=== PATIENT | female | born 1950 | race Caucasian/White ===

== ENCOUNTER 2017-02-01 10:27 | Inpatient (IN) | payer MEDICARE ==
[~2017-02-01] VITALS: Ht 160 cm; Wt 72.1 kg
[~2017-02-01 10:27] MED LIST: ABILIFY5 M1 PO; ACETAMINOPHEN/O1 TA3 PO; ATORVASTATIN CA40 M1 PO; CARISOPRODOL350 MG PO; CEL100 PO; COZ25 PO; EFFEXOR-XR150 MG PO; LAC PO; LAMOTRIGINE150 M1 PO; MAC100 PO; PANTOPRAZOLE SO40 M1 PO; TRAZODONE50 M1 PO; VENLAFAXINE HY150 MG PO; ZAN4 PO
[2017-02-01 11:23] LABS: BASOPHIL % 0.2 % (0-2); PLATELET COUNT 358 x10^3mcL (130-400); RED CELL DISTRIBUTION WIDTH 13.3 % (11.5-14.5)
[2017-02-01 11:24] LABS: CALCIUM 8.9 mg/dL (8.5-10.1); CARBON DIOXIDE 29.9 mmol/L (21-32); CHLORIDE SERUM 102 mmol/L (98-107); CREATININE SERUM 0.8 mg/dL (0.6-1.0); GFR1 > 60 mL/min; GLUCOSE SERUM 116 mg/dL (74-106); POTASSIUM SERUM 3.6 mmol/L (3.5-5.1); SODIUM SERUM 141 mmol/L (136-145)
[2017-02-01 11:28] LABS: ALKALINE PHOSPHATASE 85 U/L (46-116); ALT/SGPT 31 U/L (14-59); AMYLASE 37 U/L (25-115); AST/SGOT 27 U/L (15-37); BILIRUBIN TOTAL 0.4 mg/dL (0.20-1.00); LIPASE 158 IU/L (73-393); TOTAL PROTEIN, SERUM 7.1 g/dL (6.4-8.2)
[2017-02-01 11:30] LABS: ALBUMIN 3.1 g/dL (3.4-5.0)
[2017-02-01 11:49] LABS: microscopic required? NO
[2017-02-01 12:49] LABS: UA SPECIFIC GRAVITY 1.015 (1.005-1.035)
[2017-02-01 12:50] LABS: urine erythrocyte NEGATIVE (NEGATIVE)
[2017-02-01 15:30] VITALS: BP 157/94
[2017-02-01 16:43] LABS: PHOSPHOROUS 2.8 mg/dL (2.5-4.9)
[2017-02-01 16:53] LABS: T3 TOTAL 1.11 ng/mL
[2017-02-01 16:55] LABS: FREE T4 1.18 ng/dL (0.76-1.46); FREE THYROXINE INDEX 2.4 ug/dL (1.4-4.5); T4(THYROXINE) 6.7 ug/dL (4.7-13.3)
[2017-02-01 18:55] VITALS: BP 177/81
[2017-02-01 19:50] VITALS: BP 159/75
[2017-02-01 21:30] VITALS: BP 159/75
[2017-02-02 05:51] VITALS: BP 186/84
[2017-02-02 08:50] VITALS: BP 110/66
[2017-02-02 13:38] VITALS: BP 166/80
[2017-02-02 17:20] VITALS: BP 139/82
[2017-02-02 19:35] VITALS: BP 141/63
[2017-02-03 05:58] VITALS: BP 145/74
[2017-02-03 06:30] LABS: CALCIUM 8.4 mg/dL (8.5-10.1); CARBON DIOXIDE 29.3 mmol/L (21-32); CHLORIDE SERUM 108 mmol/L (98-107); CREATININE SERUM 0.8 mg/dL (0.6-1.0); GFR1 > 60 mL/min; GLUCOSE SERUM 91 mg/dL (74-106); POTASSIUM SERUM 3.5 mmol/L (3.5-5.1); SODIUM SERUM 146 mmol/L (136-145)
[2017-02-03 07:13] LABS: BASOPHIL % 0.5 % (0-2); PLATELET COUNT 379 x10^3mcL (130-400); RED CELL DISTRIBUTION WIDTH 13.4 % (11.5-14.5)
[2017-02-03 11:17] VITALS: BP 152/71
[2017-02-03 13:19] VITALS: BP 138/68
[2017-02-03 18:34] VITALS: BP 145/88
[2017-02-03 19:50] VITALS: BP 137/65
[2017-02-03 21:27] VITALS: BP 155/71
[2017-02-04 05:51] VITALS: BP 138/65
[2017-02-04 05:55] VITALS: BP 152/93
[2017-02-04 05:59] LABS: BASOPHIL % 0.6 % (0-2); PLATELET COUNT 336 x10^3mcL (130-400); RED CELL DISTRIBUTION WIDTH 13.6 % (11.5-14.5)
[2017-02-04 06:22] LABS: CALCIUM 8.5 mg/dL (8.5-10.1); CARBON DIOXIDE 28.2 mmol/L (21-32); CHLORIDE SERUM 108 mmol/L (98-107); CREATININE SERUM 0.8 mg/dL (0.6-1.0); GFR1 > 60 mL/min; GLUCOSE SERUM 105 mg/dL (74-106); MAGNESIUM 1.7 mg/dL (1.8-2.4); PHOSPHOROUS 4.3 mg/dL (2.5-4.9); POTASSIUM SERUM 3.8 mmol/L (3.5-5.1); SODIUM SERUM 144 mmol/L (136-145)
[2017-02-04 10:32] VITALS: BP 146/67
[2017-02-04] MEDS ORDERED: ROBAXIN500 MG PO (11:44)
[2017-02-04] MEDS ORDERED: GABAPENTIN100 M2 PO (11:44)
[2017-02-04 13:33] VITALS: BP 125/62
[2017-02-04] MEDS ORDERED: METOPROLOL TART25 M1 PO (15:47)
[2017-02-04 17:59] VITALS: BP 139/78
[2017-02-04 18:05] VITALS: BP 139/78
== END 2017-02-04 19:15 | disposition home health service (06) | DRG 391 ==
LOC: ED 10:27 → DU 13:07
PROVIDERS: Emergency Medicine; Family Medicine; ADMIT Family Medicine
DX: K59.03 Drug induced constipation (principal); I50.43 Acute on chronic combined systolic (congestive) and diastolic (congestive) heart failure; E44.0 Moderate protein-calorie malnutrition; M48.57XA Collapsed vertebra, not elsewhere classified, lumbosacral region, initial encounter for fracture; I42.9 Cardiomyopathy, unspecified; M51.36 Other intervertebral disc degeneration, lumbar region; F32.9 Major depressive disorder, single episode, unspecified; K21.9 Gastro-esophageal reflux disease without esophagitis; I10 Essential (primary) hypertension; G89.29 Other chronic pain; E83.42 Hypomagnesemia; E78.5 Hyperlipidemia, unspecified; M85.80 Other specified disorders of bone density and structure, unspecified site; Z98.1 Arthrodesis status; Z68.28 Body mass index [BMI] 28.0-28.9, adult; T40.2X5A Adverse effect of other opioids, initial encounter; Y92.018 Other place in single-family (private) house as the place of occurrence of the external cause
CPT/HCPCS: 83880; 84439; 97530-GP; J1170; J1885; J2405; J3010; J3475; J7030

== ENCOUNTER 2019-02-16 12:41 | Observation (INO) | payer OTHER ==
[~2019-02-16] VITALS: Ht 160 cm; Wt 81.6 kg
[~2019-02-16 12:41] MED LIST changes: +GABAPENTIN100 M2 PO; +METOPROLOL TART25 M1 PO; +ROBAXIN500 MG PO
[2019-02-16 13:11] VITALS: Ht 160 cm; Wt 81.6 kg
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
[2019-02-16 13:54] LABS: BASOPHIL % 0.8 % (0-2); PLATELET COUNT 294 x10^3mcL (130-400)
--- NOTE | 2019-02-16 14:34 | NUR ---
PT ARRIVED FROM MD OFFICE W/ PAPERWORK FROM ANOTHER PT. I TRIED TO CALL THEM TO NOTIFY THEM OF THIS & TO OBTAIN CORRECT PAPERWORK. NO ONE ANSWERED, I LEFT A MESSAGE. I GAVE THE INCORRECT PACKET OF PAPERWORK TO [employer]ATE MANAGER. SHE WAS ABLE TO GET A HOLD OF THEM & NOTIFY THEM OF THE ERROR & HAD THEM FAX OVER THE CORRECT PT PACKET. PACKET GIVEN TO VANIA KINNEY RN WHO PLACED IT ON THE CHART.
--- NOTE | 2019-02-16 14:43 | NUR ---
PT LAYING IN ED GURNEY IN POSITION OF COMFORT, A/O X4, CALM, COOPERATIVE, RESPS EVEN AND UNLABORED, SKIN WARM/DRY TO TOUCH, NO S/S OF DISTRESS NOTED. COMFORT MEASURES IN PLACE, CALL LIGHT WITHIN REACH.
[2019-02-16 14:45] LABS: CALCIUM 9.2 mg/dL (8.5-10.1); CARBON DIOXIDE 31.4 mmol/L (21-32); CHLORIDE SERUM 103 mmol/L (98-107); CREATININE SERUM 0.9 mg/dL (0.6-1.0); GFR1 > 60 mL/min; GLUCOSE SERUM 102 mg/dL (74-106); POTASSIUM SERUM 3.5 mmol/L (3.5-5.1); SODIUM SERUM 142 mmol/L (136-145)
[2019-02-16 15:07] LABS: ALBUMIN 3.5 g/dL (3.4-5.0); ALKALINE PHOSPHATASE 92 U/L (46-116); ALT/SGPT 25 U/L (14-59); AST/SGOT 23 U/L (15-37); BILIRUBIN TOTAL 0.5 mg/dL (0.20-1.00); T4(THYROXINE) 5.9 ug/dL (4.7-13.3); TOTAL PROTEIN, SERUM 7.5 g/dL (6.4-8.2)
--- NOTE | 2019-02-16 15:20 | NUR ---
ASSISTED PT TO BATHROOM, PT AMBULATORY WITH CANE, ABLE TO PROVIDE URINE SAMPLE, PT BACK IN ED GURNEY IN POSITION OF COMFORT, NO S/S OF DISTRESS NOTED.
[2019-02-16 15:44] LABS: AMPHETAMINE QUAL UR NONE DETECTED (See below)
--- NOTE | 2019-02-16 16:01 | NUR ---
DR. ALTMAN AT BEDSIDE DISCUSSING PLAN OF CARE WITH PT.
--- NOTE | 2019-02-16 16:49 | NUR ---
PT RESTING IN ED GURNEY IN POSITION OF COMFORT, REPORTS PAIN DECREASED TO 5/10 ON PAIN SCALE AND IS MORE COMFORTABLE, RESPS EVEN AND UNLABORED, NO S/S OF DISTRESS NOTED.
--- NOTE | 2019-02-16 17:30 | NUR ---
PT PROVIDED WITH DINNER TRAY, PT SITTING UP IN ED GURNEY EATING, NO S/S OF DISTRESS NOTED.
--- NOTE | 2019-02-16 18:22 | NUR ---
PORTABLE X-RAY IN PROGRESS AT BEDSIDE.
[2019-02-16 18:55] LABS: UA SPECIFIC GRAVITY 1.025 (1.005-1.035); microscopic required? YES; urine erythrocyte NEGATIVE (NEGATIVE)
--- NOTE | 2019-02-16 19:10 | NUR ---
REPORT RECIEVED FROM NILAM HANSEN. PT A&O X4, LAYING IN POSITION OF COMFORT. BED IN LOW AND LOCKED POSITION, 2 BED RAILS UP, CALL LIGHT W/IN REACH. PT C/O 04/08 PAIN IN BACK, STS THAT IT IS "MUCH" BETTER THAN WHEN SHE CAME IN, PT IS OK W/ LEVEL OF PAIN. PT NO LONGER EXPRESSES THOUGHTS OF HARM TO SELF. CURTAINS OPEN, PT IN DIRECT LINE OF SIGHT OF RN STATION. RESPS E/U, NAD NOTED AT THIS TIME.
--- NOTE | 2019-02-16 19:19 | NUR ---
REPORT GIVEN TO JONO HANSEN.
--- NOTE | 2019-02-16 20:15 | NUR ---
PT AWAKE AND ALERT, LAYING IN POSITION OF COMFORT. 2 BED RAILS UP, BED IN LOW AND LOCKED POSITION. CURTAINS OPEN, PT IN DIRECT LINE OF SIGHT OF RN STATION. EYES ON PT. PT CALM AND COOPERATIVE.
--- NOTE | 2019-02-16 20:37 | NUR ---
REPORT GIVEN TO SILVA HANSEN
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
--- NOTE | 2019-02-16 22:00 | NUR ---
PT STATED PAIN WAS AT AN ACCEPTABLE LEVEL AT THIS TIME, PT HAS NO ACUTE SIGNS OF DISTRESS, PT RELAXING IN BED SAFETY PRECAUTIONS IN PLACE, WILL CONTINUE TO MONITOR
[2019-02-16 22:05] VITALS: BP 144/75
--- NOTE | 2019-02-16 23:35 | NUR ---
PT REQUESTING PAIN MEDICATION DUE TO SLOWLY INCREASING PAIN, ADMINISTERED, TYLENOL PRN (SEE MAR)
--- NOTE | 2019-02-17 00:22 | NUR ---
PT REQUESTING PAIN MEDICATION FOR PAIN AT 04/08, ADMINISTERED NORCO PRN PER ORDER (SEE MAR) WILL CONTINUE TO MONITOR
--- NOTE | 2019-02-17 03:45 | NUR ---
PT REQUESTING MILK, NO SIGNS OF ACUTE DISTRESS, PT REPORTS PAIN IS AT A TOLERABLE LEVEL, SAFETY PRECAUTIONS IN PLACE WILL CONTINUE TO MONITOR
--- NOTE | 2019-02-17 05:14 | NUR ---
PT RESTED THROUGH THE NIGHT, PTS PAIN WAS CONTROLED WITH PRN NORCO PER ORDER (SEE MAR) THE PATIENT STATED THE PAIN WAS MAINTAINED AT AN ACCEPTABLE LEVEL THROUGH THE NIGHT, PT AMBULATED ONCE TO THE BATHROOM AND HAD ONE VOID, SAFETY PRECAUTIONS WERE MAINTAINED, WILL CONTINUE TO MONITOR AND ENDORDE CARE TO ONCOMING RN
[2019-02-17 06:51] LABS: BASOPHIL % 0.3 % (0-2); PLATELET COUNT 271 x10^3mcL (130-400); RED CELL DISTRIBUTION WIDTH 14.3 % (11.5-14.5)
[2019-02-17 06:54] LABS: CALCIUM 9.3 mg/dL (8.5-10.1); CARBON DIOXIDE 26.1 mmol/L (21-32); CHLORIDE SERUM 104 mmol/L (98-107); CREATININE SERUM 0.9 mg/dL (0.6-1.0); GFR1 > 60 mL/min; GLUCOSE SERUM 105 mg/dL (74-106); POTASSIUM SERUM 3.9 mmol/L (3.5-5.1); SODIUM SERUM 129 mmol/L (136-145)
--- NOTE | 2019-02-17 07:20 | NUR ---
RECEIVED PT FROM IMMIGRATION OFFICER. PT AWAKE, ALERT. A/OX4. PT ON ROOM AIR WITH NO RESP DISTRESS NOTED. LUNGS CTA. IV ACCESS RH C/D/I INFUSING NS AT 80ML/HR. PT REPORTS PAIN 5/10 TO SPINE. WILL MEDICATE PRN. PT DENIES SUICIDAL THOUGHTS/PLAN AT THIS TIME. PT STATES " LONG I CAN KEEP THE PAIN UNDER CONTROL". PT REPORTS PAIN INTERFERES WITH ACTIVITIES OF DAILY LIVING AND AT ONE POINT "COULDNT TAKE IT". PT REPORTS PAIN IS TOLERABLE AT THIS TIME. PERIPHERAL PULSES PALPABLE, NO EDEMA NOTED. NO ISSUES IDENTIFIED WITH ELIMINATION AT THIS TIME. PT HAS GENERALIZED WEAKNESS. SAFETY MEASURES IN PLACE, BED LOW AND LOCKED. CALL LIGHT WITHIN REACH.
[2019-02-17 09:28] VITALS: BP 172/87
--- NOTE | 2019-02-17 09:45 | NUR ---
PT COMPLAINING OF PAIN TO SPINE 05/09. NORCO 10 ADMINISTERED ORDERED PRN. (SEE EMAR). PT REFUSES ROBAXIN AT THIS TIME. PT STATES SHE WANTS NORCO FIRST. WILL CONTINUE TO MONITOR.
--- NOTE | 2019-02-17 10:45 | NUR ---
PT RESTING COMFORTABLY AT THIS TIME. MED EFFECTIVE. SITTER AT BEDSIDE. SAFETY MAINTAINED.
[2019-02-17 12:19] VITALS: BP 147/76
--- NOTE | 2019-02-17 12:20 | NUR ---
DUE MEDS ADMINISTERED. PT TOLERATED WELL (SEE EMAR). NO ACUTE DISTRESS OR DISCOMFORT NOTED AT THIS TIME.
--- NOTE | 2019-02-17 14:00 | NUR ---
ALL NEEDS MET AT THIS TIME. SITTER AT BEDSIDE.
--- NOTE | 2019-02-17 17:00 | NUR ---
PT COMPLAINING OF PAIN TO SPINE. PT REPORTS EARLIER ROBAXIN HELPED RELIEVED PAIN. MED DUE AT THIS TIME. PT WANTS TO SEE IF MED EFFECTIVE BEFORE TAKING NORCO. WILL CONTINUE TO MONITOR.
--- NOTE | 2019-02-17 19:01 | NUR ---
PT STABLE AT THIS TIME. PT SLEEPING AT THIS TIME WITH NO ACUTE DISTRESS OR DISCOMFORT NOTED. ALL NEEDS TENDED TO THROUGHOUT SHIFT. SITTER AT BEDSIDE. WILL CONTINUE TO MONITOR AND ENDORSE CARE TO HOME HEALTH RN. SAFETY MAINTAINED.
--- NOTE | 2019-02-17 19:40 | NUR ---
RECEIVED REPORT FROM DAY SHIFT RN. PT RESTING IN BED. AA&O X4. NO SOB ON ROOM AIR. NO C/O PAIN AT THIS TIME. NO DISTRESS NOTED. IV TO RIGHT HAND, INTACT. DENIES HAVING THOUGHTS OF HARMING SELF OR OTHERS. SAFETY MEASURES IN PLACE. INSTRUCTED PT TO USE THE CALL LIGHT FOR ASSISTANCE. CALL LIGHT WITHIN REACH. SITTER AT BEDSIDE.
[2019-02-17 20:58] VITALS: BP 150/77
--- NOTE | 2019-02-18 01:00 | NUR ---
PT RESTING WITH EYES CLOSED. NO SOB ON ROOM AIR. NO FACIAL GRIMACING. NO DISTRESS NOTED. SAFETY MEASURES IN PLACE. CALL LIGHT WITHIN REACH. WILL CONTINUE TO MONITOR.
--- NOTE | 2019-02-18 05:32 | NUR ---
PT SLEPT IN LONG INTERVALS THROUGHOUT SHIFT. NO SOB ON ROOM AIR. BREATHING EVEN AND UNLABORED. NO DISTRESS NOTED. NO ACUTE/SIGNIFICANT CHANGES TO REPORT. SAFETY MEASURES MAINTAINED. ALL NEEDS ATTENDED TO. CALL LIGHT WITHIN REACH. WILL ENDORSE CONTINUITY OF CARE TO ONCOMING RN.
[2019-02-18 05:53] VITALS: BP 183/82
--- NOTE | 2019-02-18 06:09 | NUR ---
PT C/O SHARP BACK PAIN 06/09. NORCO GIVEN.
--- NOTE | 2019-02-18 07:10 | NUR ---
RECEIVED PT FROM SAS SQL DEVELOPER RN. Cory/MAI. MED SURG. DENIES CHEST PAIN/PRESSURE. RESPIRATIONS EQUAL AND UNLABORED ON RA. DENIES SOB. PT STATES BACK PAIN IS TOLERABLE AT THIS TIME, SINCE RECEIVING PAIN MEDICATION THIS MORNING. IV TO LW PATENT AND INFUSING. NO REDNESS OR SWELLING NOTED. PT DENIES ANY THOUGHTS OF HARMING HERSELF OR OTHER. PT STATES SHE FEELS BETTER SINCE SHES HAD PEOPLE TO TALK TO. 5150 HOLD. WILL CONTINUE TO MONITOR. CALL LIGHT IN REACH. BED IN LOWEST POSITION.
[2019-02-18 09:00] VITALS: BP 157/78
--- NOTE | 2019-02-18 09:40 | NUR ---
PT SITTING UP IN BED. NO ACUTE RESP DISTRESS NOTED ON RA. PT DENIES SOB AT THIS TIME. GIVEN PO MEDS TOLERATED WELL. PT REFUSED COLACE, PT STATES SHE HAS BEEN HAVING SOFT STOOLS AND DOES NOT WANT TO GET DIARRHEA. IV FLUIDS DISCONTINUED PER ORDER. PT DENIES THOUGHTS OF HARMING HERSELF OR OTHERS. PT STATES BACK PAIN IS TOLERABLE AT THIS TIME. WILL CONTINUE TO MONITOR. CALL LIGHT IN REACH. BED IN LOWEST POSITION.
--- NOTE | 2019-02-18 12:48 | NUR ---
PHYSICAL THERAPY NOTE MISTAKEN ENTRY, DISREGARD THE ENTRY FOR CLARIFICATION ORDER FOR THE DATE 02/18/19.
--- NOTE | 2019-02-18 13:46 | NUR ---
PT SITTING UP IN BED RESTING. NO ACUTE RESP DISTRESS NOTED ON RA. PT STATES PAIN IS STARTING TO INCREASE BUT HAS BEEN MANAGABLE. GIVEN PO MEDS. TOLERATED WELL. PT STATES SHE WILL CALL IF PAIN WORSENS. PT DENIES THOUGHTS OF HARMING HERSELF OR OTHERS. WILL CONTINUE TO MONITOR. CALL LIGHT IN REACH. BED IN LOWEST POSITION.
--- NOTE | 2019-02-18 13:58 | NUR ---
Initial Nutrition Assessment- 212/A DOMINIC KELLOGG IA HR Dx: intractable back pain, suicidal ideation PMHx: chronic back pain PSHx: back surgery Labs: NA 129L, WBC 11.7H Meds: Colace, Lipitor, Zofran, heparin Diet: Cardiac PO Intake: 100% (02/17), (02/18) breakfast 60% Ht: 160.02cm (63") Wt: 81.6 kg (179#) BMI: 31.9 kg/m2 (obesity) IBW: 115# (52 kg) %IBW: 155 UBW: Pt was unaware Age: 68/F Food Allergies: NKFA Skin: intact Joaquín: 20 Edema: none GI: last BM:02/17 Trigger: poor PO x 3d (eats only one meal/day) Per H&P, pt is a 68 F PMH chronic back pain secondary to osteoarthritis s/p 2 back surgeries, on [place] for pain control from pain management physician, who was brought in by EMS, on a 5150 hold, for evaluation of suicidal ideation. The patient states that she told her PCP that she wanted to end her life secondary to her progressively worsening pain. Patient reports she was just feeling frustrated of living alone in pain without improvement despite ongoing medical treatment. RDN visit (02/18): pt said that her appetite is fair and she has some nausea but no V/D/C at this time. Pt said that she used to eat only one meal/day as she cannot cook her meals standing by the stove for long time d/t her back pain. Pt was advised to do bulk cooking for 3-4 meals simultaneously or look for 5-10 minute quick meal recipes. Pt said that she likes to read different recipes in books/magazines. Diet education for "normal nutrition" and healthy eating was provided. Problem with: N: little V/D/C: no Problems with: Chewing/Swallowing: no Current appetite: fair Recent wt change: weight gain, unaware about exact number of lbs. Vitamin/Supplement use: Vitamin D, B12, MVI Special diet at home: Regular Physical activity: unable to do PA d/t pain Education: Diet education was provided using [facility] handout on "General healthful nutrition therapy". Cooking and healthy eating tips were discussed. Estimated Nutritional Needs Based on actual body weight 81.6 kg Energy: 6580-8291 kcal/d (20-25 kcal/kg-maintenance) Protein: 65-81.6 g/d (0.8-1.0 g/kg)-maintenance and preservation of lean body mass Fluid: 2438-0813 ml/d (1 ml/kcal-fluid balance) or per doctor Nutrition Diagnosis 1. Impaired ability to prepare foods/meals related to chronic pain as evidenced by pt reporting consumption of only one meal/day. Intervention 1. Recommend continuing cardiac diet at this time. 2.Diet education provided. Monitor/Evaluate Goal: PO intake at least 75% of estimated needs Monitor: PO intake, Labs, GI function F/U in 7 days as low risk 02/25
--- NOTE | 2019-02-18 13:59 | NUR ---
1. Recommend continuing cardiac diet at this time. 2.Diet education provided.
[2019-02-18 16:10] VITALS: BP 151/81
[2019-02-18 17:10] VITALS: BP 151/81
--- NOTE | 2019-02-18 17:44 | NUR ---
(PSYCHOLOGIST) CAME IN AND EVAL PT AND HAD CLEARED PT FOR 5150 AND SAYS PT IS CLEARED ON PSYCH STANDPOINT. CALLED TO AND SENIOR PROJECT ACCOUNTANT FOR , MADE KNOW OF PSYCH CLEARANCE BY . NEW ORDER RECEIVED FROM FELI PETERSON TO D/C HOME. SHAWN HANSEN ASSIGNED TO THIS PT MADE AWARE OF ABOVE.
--- NOTE | 2019-02-18 17:50 | NUR ---
PT SITTING UP AT BEDSIDE. NO ACUTE RESP DISTRESS NOTED ON RA. PT STATES BACK PAIN IS TOLERABLE. DR. BOOGIE CLEARED PT TO GO HOME. PT STATES SHE WILL CALL SOMEONE TO PICK HER UP. GIVEN PO MEDS. TOLERATED WELL. WILL CONTINUE TO MONITOR. CALL LIGHT IN REACH. BED IN LOWEST POSITION.
--- NOTE | 2019-02-18 18:44 | NUR ---
PT GIVEN DISCHARGE INSTRUCTIONS. PT INSTRUCTED TO RETURN TO ER OR CALL PCP IF ANY WORSENING SYMPTOMS OF SOB, PAIN, FEVER. PT VERBALIZED UNDERSTANDING. PT ENCOURAGED TO CONTINUE HOME MEDICATIONS PRESCRIBED. PT VERBALIZED UNDERSTANDING. PT TOLD [facility] WILL CALL PT WHEN PT IS DISCHARGED HOME TO SET UP FIRST APPOINTMENT. PT TOLD TO MAKE FOLLOW UP APPOINTMENT WITH PCP. PT VERBALIZED UNDERSTANDING. ALL QUESTIONS AND CONCERNS ADDRESSED. PT STATES HER SON WILL PICK HER UP IN 30 MINUTES. IV TO TO LW REMOVED CATHETER INTACT. NO REDNESS OR SWELLING NOTED. WILL CONTINUE TO MONITOR.
--- NOTE | 2019-02-18 19:26 | NUR ---
PT ESCORTED TO LOBBY VIA W/C IN NO ACUTE DISTRESS. ACCOMPANIED BY CATRACHITO FELDMAN AND PT SON.
== END 2019-02-18 19:30 | disposition home or self-care (01) | DRG 552 ==
LOC: ED 12:41 → MU 18:37
PROVIDERS: Emergency Medicine; ADMIT Internal Medicine Pulmonary Disease
DX: M47.9 Spondylosis, unspecified (principal); R45.851 Suicidal ideations; G89.29 Other chronic pain; Z68.31 Body mass index [BMI] 31.0-31.9, adult
CPT/HCPCS: 97116-GP; 97530-GP; G0378; G0480; J1644; J7030; J7512

== ENCOUNTER 2019-05-25 10:30 | Inpatient (IN) | payer OTHER ==
[~2019-05-25] VITALS: Ht 160 cm; Wt 81.6 kg
--- NOTE | 2019-05-25 10:48 | NUR ---
PT CAME TO THE ED TODAY WITH CO R LEG PAIN AND BACK PAIN X 2 DAYS. PT STATES NO TRAUMA AND IT STARTED SUDDDENLY. PT STATES THAT HER LEG PAIN FEELS LIKE A " CHARLEY HORSE, BUT IN THE FRONT." PT STATES SHE HAS NO BACK PAIN RIGHT NOW S/P TAKING A NORCO. +PMSC IN ALL EXTREMETIES. PT RECLINING ON [facility] WITH NAD. WILL CONTINUE TO MONITOR
[2019-05-25 12:42] LABS: PLATELET COUNT 342 x10^3mcL (130-400); RED CELL DISTRIBUTION WIDTH 14.4 % (11.5-14.5)
[2019-05-25 12:55] LABS: CALCIUM 8.9 mg/dL (8.5-10.1); CARBON DIOXIDE 30.2 mmol/L (21-32); POTASSIUM SERUM 3.7 mmol/L (3.5-5.1)
[2019-05-25 13:00] LABS: ALBUMIN 3.4 g/dL (3.4-5.0); BILIRUBIN TOTAL 0.35 mg/dL (0.20-1.00); MAGNESIUM 2.2 mg/dL (1.8-2.4); TOTAL PROTEIN, SERUM 7.6 g/dL (6.4-8.2)
--- NOTE | 2019-05-25 13:22 | NUR ---
PT IN POSITION OF COMFORT. VSS. RESP E/U. WILL CONTINUE TO MONITOR.
--- NOTE | 2019-05-25 15:20 | NUR ---
PT BECAME NAUSEOUS AND VOMITED GREEN BILE. MADE AWARE. CHANGED GOWN AND SHEET AND PLACED WITH NEW GOWN. PT REMAINS HOOKED UP TO FULL MONITORS, WILL CONITNUE TO MONITOR.
--- NOTE | 2019-05-25 15:36 | NUR ---
I CALLED NIDHI IN CASE MANAGEMENT TO ASSIST WITH PLACEMENT
--- NOTE | 2019-05-25 16:28 | NUR ---
PT STATES SHE IS FEELING A LITTLE BETTER AT THIS TIME. WILL CONTINUE TO MONITOR
--- NOTE | 2019-05-25 18:02 | NUR ---
PT SITTING UP ON JACQUELINE EATING DINNER WITH AGUSTINA
--- NOTE | 2019-05-25 18:11 | NUR ---
REPORT GIVEN TO TERA HANSEN ON MS FOR FURTHER CARE OF PT
--- NOTE | 2019-05-25 18:17 | NUR ---
RECEIVED REPORT FROM ER AND PATIENT HAS BEEN HAING BACK PAIN. THIS IS A CHRONIC PROBLEM AND TAKES NORCO AT HOME FREQUENTL AND HAS BEEN HAVING PAIN TOT EH LEG WELL. WILL AWAIT ARRIVAL.
--- NOTE | 2019-05-25 18:25 | NUR ---
RECEIVED PT VIA GUERNEY FROM E/D, ACCOMPANIED BY TRANSPORTER. PT A/A/O X 4, CALM, COOPERATIVE; PREVIOUS HX OF S/I. PT W/ GENERALIZED WEAKNESS, BUT ABLE TO AMBULATE W/ ASSIST; USES CANE/W/C/WALKER @ HOME; DECREASED ROM TO RLE D/T PAIN; FALL RISK PROTOCOL IN PLACE. DENIES CHEST PAIN OR DISCOMFORT AT THIS TIME. NO ACUTE RESPIRATORY DISTRESS NOTED. ABD SOFT, ROUND, NON-TENDER, NORMOACTIVE BOWEL SOUNDS X 4 QUADS, TYMPANY UPON PERCUSSION TO QUAD 1, LAST BM 05/25/19, HARD; REPORTS HAVING POOR APPETITE > 3 DAYS. IV SITE LAC 20G, CDI. ORIENTED PT TO ROOM, BED CONTROLS, CALL LIGHT SYSTEM. SIDE RAILS UP X 2, BED IN LOW POSITION. WILL ENDORSE TO JADE HALEY.
[2019-05-25 19:09] VITALS: BP 203/100
--- NOTE | 2019-05-25 19:11 | NUR ---
PATIENT HAS HER HOME MEDICATIONS AND SOME ARE THE NORCO, EFFEXOR AND GABAPENTIN. TOOK AND COUNTED THE PILLS EXCEPT THE LAST BOTTLE WHICH APPEARS TO BE A MIXED MEDICATIONS AND WILL TURN INTO THE PHARMACY. PATIENT IS NOT TO HAVE NARCOTICS AT BEDSIDE. ADVISED THE PATIENT SENDING FOR VARIFICATION.
--- NOTE | 2019-05-25 19:25 | NUR ---
RECIEVED PT FROM TERA AND IVET RNS, PT IS RESTING IN BED WITH NO ACUTE DISTRESS AT THIS TIME, PT IS A/OX4 NO COMPLAINTS OF DELVALLE OR DIZZINESS, PT DENIES CHEST PAIN, LUNG SOUNDS CTA, NO SOB, RESPIRATIONS EVEN AND UNLABORED, BOWEL SOUNDS ACTIVE, ABD SOFT, ROUND, NONTENDER, PT VOIDS FREE OF BURNING OR IRRITATION, PT REPORTS GENERALIZED WEAKNESS, BUT IS AMBULATORY, PT REPORTS MILD SHARP LOWER BACK AND RIGHT LEG PAIN BUT STATES IT IS AT AN ACCEPTABLE LEVEL AND DOES NOT WANT MEDICATIONS FOR IT AT THIS TIME PT STATES IT IS AT A 3/10. ALL PT NEEDS ATTENDED TO AT THIS TIME, SAFETY PRECAUTIONS IN PLACE, WILL CONTINUE TO MONITOR.
--- NOTE | 2019-05-25 19:38 | NUR ---
PT BLOOD PRESSURE 202/100, PT IS ASYMPTOMATIC, PAGED DR MANLEY
--- NOTE | 2019-05-25 19:50 | NUR ---
DR KING CALLED BACK AND ORDERED CLONIDINE PRN, ONE TIME ORDER OF LOPRESSOR, AND AN INCREASE OF DAILY LOPRESSER.
[2019-05-25 20:31] VITALS: BP 148/80
--- NOTE | 2019-05-25 21:23 | NUR ---
PT REPORTS A 6/10 PAIN TO THE LEFT FOOT, MEDICATED PRN PER DOCTORS ORDER (SEE MAR), WILL CONTINUE TO MONITOR
--- NOTE | 2019-05-25 22:10 | NUR ---
PT UP AND AMBULATED TO THE BATHROOM, GATE SLIGHTLY UNSTEADY, ASSISSTED TO BATHROOM AND EDUCATED TO CALL FOR ASSISSTANCE ANY TIME SHE NEEDS TO GO TO THE BATHROOM
--- NOTE | 2019-05-26 00:55 | NUR ---
PT COMPLAINING OF SHOOTING LOW BACK AND RIGHT LEG PAIN 03/09, MEDICATED PER ORDER (SEE MAR)
--- NOTE | 2019-05-26 03:45 | NUR ---
PT RESTING IN BED WITH NO ACUTE DISTRESS AT THIS TIME, PT DENIES PAIN OR SOB AT THIS, TIME, ALL NEEDS ATTENDED TO, SAFETY PRECAUTIONS IN PLACE, WILL COTNINUE TO MONITOR
--- NOTE | 2019-05-26 05:10 | NUR ---
PT RESTED THROUGH BEGGINING OF SHIFT WITH NO DISTRESS, BUT THEN HAD EPISODE OF BACK AND LEG PAIN TREATED WITH PRN OXYCOTIN PER ORDER (SEE MAR), PT BLOOD PRESSURE ELEVATED AT BEGGINING OF SHIFT AND PHYSICIAN WAS NOTIFIED, PT RECIEVED ONE TIME DOSE OF LOPRESSOR AND BLOOD PRESSURE HAS BEEN STABLE SINCE, PT OTHERWISE STABLE, ALL NEEDS ATTENDED TO THROUGH SHIFT, WILL CONTINUE TO MONITOR AND ENDORS CARE TO ONCOMING RN
[2019-05-26 05:13] VITALS: BP 139/75
--- NOTE | 2019-05-26 05:54 | NUR ---
PT REPORTS MILD DELVALLE, ADMINISTERED TYLENOL PER PHYSICIANS ORDER
--- NOTE | 2019-05-26 06:08 | NUR ---
PT REPORTS SHARP BACK PAIN AND RIGHT LEG PAIN HAS RETURNED AND INCREASED TO 7/10, MEDICATED WITH OXYCOTIN PER ORDER (SEE MAR)
[2019-05-26 06:24] LABS: BASOPHIL % 0.9 % (0-2); PLATELET COUNT 355 x10^3mcL (130-400); RED CELL DISTRIBUTION WIDTH 14.2 % (11.5-14.5)
--- NOTE | 2019-05-26 07:30 | NUR ---
RECEIVED PATIENT SITTING UP AT EDGE OF BED A/O X4, CLEAR SPEECH, NO NEURO DEFICITS NOTED. DENIES CHEST PAIN, BREATHING EVEN AND UNLABBORED ON ROOM AIR, DENIES SOB, NO DISTRESS NOTED. PATIENT STATES PAIN TO LOWER BACK IS AT ITS BEST AND LOWEST ITS BEEN 6/10, TOLERABLE AT THIS TIME. IV TO LAC H/L INTACT AND PATENT FREE FROM REDNESS AND INFILTRATION. PATIENT IS CALM WITH CARE.INSTRUCTED TO CALL FOR ASSISTANCE IF NEEDED. SAFETY PRECAUTIONS MAINTAINED. WILL MONITOR.
[2019-05-26 07:38] LABS: ALKALINE PHOSPHATASE 84 U/L (46-116); ALT/SGPT 18 U/L (14-59); AST/SGOT 12 U/L (15-37); CALCIUM 8.8 mg/dL (8.5-10.1); CARBON DIOXIDE 24.8 mmol/L (21-32); CHLORIDE SERUM 104 mmol/L (98-107); CREATININE SERUM 0.9 mg/dL (0.6-1.0); GFR1 > 60 mL/min; GLUCOSE SERUM 172 mg/dL (74-106); MAGNESIUM 2.1 mg/dL (1.8-2.4); POTASSIUM SERUM 3.7 mmol/L (3.5-5.1); SODIUM SERUM 141 mmol/L (136-145); TOTAL PROTEIN, SERUM 7.5 g/dL (6.4-8.2)
[2019-05-26 07:39] LABS: ALBUMIN 3.2 g/dL (3.4-5.0)
--- NOTE | 2019-05-26 09:50 | NUR ---
PATIENT RESTING IN BED COMFORTABLY NO DISTRESS NOTED. REVIEWED POC WITH PATIENT: PATIENT IS STABLE FOR DISCHARGE HOME TODAY, WILL FOLLOW UP WITH ORDERS FOR HOME HEALTH PT. PATIENT VERBALIZED UNDERSTANDING. WILL MONITOR
--- NOTE | 2019-05-26 12:25 | NUR ---
PATIENT RESTING IN BED COMFORTABLY WITH EYES CLOSED, NO DISTRESS NOTED, BREATHING EVEN AND UNLABBORED ON ROOM AIR. PATIENT EASILY AROUSABLE, STATED WILL CALL HER SON AND NOTIFY HIM SHE IS BEING D/C HOME TODAY. PATIENT STATED HER SON IS WORKING AND WILL BE IN AFTER 1700 WHEN HE GETS OFF WORK TO TAKE HER HOME. ALL QUESTIONS AND CONCERNS ADDRESSED, SAFETY PRECAUTIONS MAINTAINED. WILL MONITOR.
[2019-05-26 13:19] VITALS: BP 130/68
--- NOTE | 2019-05-26 15:50 | NUR ---
PATIENT RESTING IN BED COMFORTABLY, WATCHING TELEVISION, NO DISTRESS NOTED. ALL NEEDS ATTENDED TO, SAFETY PRECAUTIONS MAINTAINED. WILL MONITOR.
--- NOTE | 2019-05-26 18:03 | NUR ---
PATIENT STABLE FOR DISCHARGE HOME WITH HOME HEALTH, SON WAITING IN [facility]. IV TO LAC REMOVED, CATH INTACT, ID BANDS REMOVED. PATIENT GIVEN ALL HOME MEDICATIONS THAT WERE STORED IN PHARMACY. PATIENT ASSISTED DOWN TO [facility] VIA WHEELCHAIR ACCOMPANIED BY NURSE AID. ALL PERSONAL BELONGINGS SENT HOME WITH PATIENT.
== END 2019-05-26 18:04 | disposition home health service (06) | DRG 552 ==
LOC: ED 10:30 → MU 17:20
PROVIDERS: Emergency Medicine; ADMIT Internal Medicine Pulmonary Disease
DX: M46.86 Other specified inflammatory spondylopathies, lumbar region (principal); M46.82 Other specified inflammatory spondylopathies, cervical region; G89.29 Other chronic pain; M54.16 Radiculopathy, lumbar region; F32.9 Major depressive disorder, single episode, unspecified; I10 Essential (primary) hypertension; E78.5 Hyperlipidemia, unspecified; Z87.828 Personal history of other (healed) physical injury and trauma
CPT/HCPCS: 97116-GP; G0378; J1100; J1644; J1885; J2405; J2800; J3490; J7030

== ENCOUNTER 2019-05-29 18:36 | Emergency (ER) | payer OTHER ==
[~2019-05-29] VITALS: Ht 160 cm; Wt 81.6 kg
[2019-05-29 18:45] VITALS: Ht 160 cm; Wt 81.6 kg
[2019-05-29 21:04] VITALS: BP 160/82
== END 2019-05-29 21:04 | disposition home or self-care (01) ==
LOC: ED 18:36
DX: M54.5 Low back pain (principal); G89.29 Other chronic pain; F31.9 Bipolar disorder, unspecified; M19.90 Unspecified osteoarthritis, unspecified site; Z88.5 Allergy status to narcotic agent; Z88.1 Allergy status to other antibiotic agents
CPT/HCPCS: J1170; J1885

== ENCOUNTER 2019-06-08 11:47 | Emergency (ER) | payer OTHER ==
[~2019-06-08] VITALS: Ht 160 cm; Wt 77.1 kg
[2019-06-08 12:10] VITALS: Ht 160 cm; Wt 77.1 kg
[2019-06-08 16:21] VITALS: BP 128/74
== END 2019-06-08 16:21 | disposition home or self-care (01) ==
LOC: ED 11:47
DX: S52.022A Displaced fracture of olecranon process without intraarticular extension of left ulna, initial encounter for closed fracture (principal); I10 Essential (primary) hypertension; Z88.8 Allergy status to other drugs, medicaments and biological substances; Z88.5 Allergy status to narcotic agent; F32.9 Major depressive disorder, single episode, unspecified; W01.0XXA Fall on same level from slipping, tripping and stumbling without subsequent striking against object, initial encounter; Y93.89 Activity, other specified; Y92.89 Other specified places as the place of occurrence of the external cause; Y99.8 Other external cause status

== ENCOUNTER 2019-06-13 13:29 | Emergency (ER) | payer OTHER ==
[~2019-06-13] VITALS: Ht 160 cm; Wt 77.1 kg
[2019-06-13 13:49] VITALS: Ht 160 cm; Wt 77.1 kg
[2019-06-13 21:03] VITALS: BP 181/82
== END 2019-06-13 21:04 | disposition home or self-care (01) ==
LOC: ED 13:29
DX: G89.29 Other chronic pain (principal); M54.5 Low back pain; I10 Essential (primary) hypertension; F32.9 Major depressive disorder, single episode, unspecified; M19.90 Unspecified osteoarthritis, unspecified site; Z98.890 Other specified postprocedural states; Z88.5 Allergy status to narcotic agent; Z88.1 Allergy status to other antibiotic agents
CPT/HCPCS: J1885

== ENCOUNTER 2019-07-23 03:18 | Emergency (ER) | payer OTHER ==
[~2019-07-23] VITALS: Ht 160 cm; Wt 72.6 kg
[2019-07-23 03:24] VITALS: Ht 160 cm; Wt 72.6 kg
[2019-07-23 04:10] LABS: BASOPHIL % 0.9 % (0-2); PLATELET COUNT 282 x10^3mcL (130-400); RED CELL DISTRIBUTION WIDTH 12.1 % (11.5-14.5)
[2019-07-23 04:18] LABS: CALCIUM 8.9 mg/dL (8.5-10.1); CARBON DIOXIDE 29.7 mmol/L (21-32); CHLORIDE SERUM 104 mmol/L (98-107); CREATININE SERUM 1.1 mg/dL (0.6-1.0); GLUCOSE SERUM 108 mg/dL (74-106); POTASSIUM SERUM 3.6 mmol/L (3.5-5.1); SODIUM SERUM 141 mmol/L (136-145)
[2019-07-23 04:23] LABS: ALBUMIN 3.7 g/dL (3.4-5.0); ALKALINE PHOSPHATASE 100 U/L (46-116); ALT/SGPT 20 U/L (14-59); AST/SGOT 22 U/L (15-37); BILIRUBIN TOTAL 0.3 mg/dL (0.20-1.00); TOTAL PROTEIN, SERUM 7.6 g/dL (6.4-8.2)
[2019-07-23 07:12] VITALS: BP 168/91
== END 2019-07-23 07:12 | disposition home or self-care (01) ==
LOC: ED 03:18
PROVIDERS: Emergency Medicine
DX: K59.00 Constipation, unspecified (principal); I10 Essential (primary) hypertension; F32.9 Major depressive disorder, single episode, unspecified; M19.90 Unspecified osteoarthritis, unspecified site; Z88.8 Allergy status to other drugs, medicaments and biological substances; Z88.5 Allergy status to narcotic agent
CPT/HCPCS: 36415; J1885

== ENCOUNTER 2019-08-14 13:51 | Emergency (ER) | payer OTHER ==
[~2019-08-14] VITALS: Ht 160 cm; Wt 77.1 kg
[2019-08-14 13:54] VITALS: Ht 160 cm; Wt 77.1 kg
[2019-08-14 14:37] LABS: PLATELET COUNT 269 x10^3mcL (130-400); RED CELL DISTRIBUTION WIDTH 13.4 % (11.5-14.5)
[2019-08-14 15:29] LABS: CREATININE SERUM 1.1 mg/dL (0.6-1.0)
[2019-08-14 15:34] LABS: CALCIUM 8.8 mg/dL (8.5-10.1); CARBON DIOXIDE 30.3 mmol/L (21-32); CHLORIDE SERUM 107 mmol/L (98-107); GLUCOSE SERUM 114 mg/dL (74-106); POTASSIUM SERUM 3.9 mmol/L (3.5-5.1); SODIUM SERUM 145 mmol/L (136-145)
[2019-08-14 15:39] LABS: ALBUMIN 3.4 g/dL (3.4-5.0); ALKALINE PHOSPHATASE 92 U/L (46-116); ALT/SGPT 16 U/L (14-59); AST/SGOT 7 U/L (15-37); BILIRUBIN TOTAL 0.28 mg/dL (0.20-1.00); LIPASE 123 IU/L (73-393); TOTAL PROTEIN, SERUM 7.3 g/dL (6.4-8.2)
[2019-08-14 16:55] VITALS: BP 157/98
[2019-08-15] MEDS ORDERED: NORCO1 TA2 PO (13:33)
[2019-08-15] MEDS ORDERED: GABAPENTIN100 M2 PO (13:34)
[2019-08-15] MEDS ORDERED: LOSARTAN POTAS100 M1 PO (13:34)
[2019-08-15] MEDS ORDERED: EPZICOM1 TAB (15:25)
[2019-08-15] MEDS ORDERED: NORCO 10-325 T1 EACH PO (15:25)
== END 2019-08-14 16:55 | disposition home or self-care (01) ==
LOC: ED 13:51
PROVIDERS: Emergency Medicine
DX: R10.13 Epigastric pain (principal); I10 Essential (primary) hypertension; F32.9 Major depressive disorder, single episode, unspecified
CPT/HCPCS: J2060; J2405; J3490; J7030; Q0092

== ENCOUNTER 2019-08-15 07:46 | Inpatient (IN) | payer OTHER ==
[~2019-08-15] VITALS: Ht 160 cm; Wt 78.6 kg
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
--- NOTE | 2019-08-15 08:54 | NUR ---
AT BEDSIDE FOR MSE.
[2019-08-15 09:13] LABS: PLATELET COUNT 275 x10^3mcL (130-400); RED CELL DISTRIBUTION WIDTH 13.2 % (11.5-14.5)
--- NOTE | 2019-08-15 09:14 | NUR ---
PT AMBULATED WITH ASSISTANCE TO RESTROOM TO PROVIDE URINE SAMPLE.
--- NOTE | 2019-08-15 09:17 | NUR ---
PT OFF FLOOR TAKEN FOR CT SCAN VIA WHEELCHAIR.
[2019-08-15 09:18] LABS: BASOPHIL % 0 % (0-2)
[2019-08-15 10:11] LABS: CARBON DIOXIDE 27.6 mmol/L (21-32); CHLORIDE SERUM 105 mmol/L (98-107); GLUCOSE SERUM 100 mg/dL (74-106); SODIUM SERUM 142 mmol/L (136-145)
[2019-08-15 10:12] LABS: ALBUMIN 3.4 g/dL (3.4-5.0); ALT/SGPT 18 U/L (14-59); AST/SGOT 11 U/L (15-37); BILIRUBIN TOTAL 0.29 mg/dL (0.20-1.00); CALCIUM 8.8 mg/dL (8.5-10.1); CREATININE SERUM 0.9 mg/dL (0.6-1.0); TOTAL PROTEIN, SERUM 7.5 g/dL (6.4-8.2)
[2019-08-15 10:13] LABS: ALKALINE PHOSPHATASE 93 U/L (46-116); CHOLESTEROL 225 mg/dL (<200)
--- NOTE | 2019-08-15 11:18 | NUR ---
PT AMBULATED TO RESTROOM WITH SOME ASSISTANCE, STEADY GAIT NOTED.
--- NOTE | 2019-08-15 12:38 | NUR ---
AT BEDSIDE TO DISCUSS PT POC
--- NOTE | 2019-08-15 13:11 | NUR ---
PT REQUESTED TO TAKE HER RX OF NORCO FOR BACK PAIN. PER , OK FOR PT TO TAKE.
[2019-08-15] MEDS ORDERED: NORCO1 TA2 PO (13:33)
[2019-08-15] MEDS ORDERED: LOSARTAN POTAS100 M1 PO (13:34)
[2019-08-15] MEDS ORDERED: GABAPENTIN100 M2 PO (13:34)
--- NOTE | 2019-08-15 14:29 | NUR ---
REPORT GIVEN TO JADE HARMON ON TELE UNIT TO ASSUME CARE OF PT.
--- NOTE | 2019-08-15 14:50 | NUR ---
RECEIVED PT FROM ED VIA [employer], CAME IN DUE TO DIZZINESS AND FALL. AAOX4. DENIES HEADACHE. STATED THAT SHE HAS MILD DIZZINESS WORSE ON AMBULATION. ABLE TO FOLLOW COMMANDS. NO FACIAL DROOP NOTED. SPEECH IS CLEAR. NO SOB NOTED, LUNG SOUNDS CTA,O2 SAT=99%, RA. STATED THAT SHE HAS 2/10 MID-CHEST PAIN DESCRIBED SHARP, NON-RADIATING. DENIES ABDOMINAL DISCOMFORT. VOIDS. MILD GENERALIZED WEAKNESS, ABLE TO MOVE ALL EXTREMITIES. IV SITE ON THE RIGHT HAND GAUGE 24 IS PATENT AND INTACT. W/ SCABS ON BUE AND MID-FOREHEAD SMALL ABRASION, EDUCATION TECHNICIAN. SIDE RAILS UPX2. CALL LIGHT ON REACH. PRIMARY NURSE MICHAEL AT BEDSIDE FOR CONTINUITY OF CARE
[2019-08-15 15:11] VITALS: BP 151/94
[2019-08-15 15:17] VITALS: Ht 160 cm; Wt 78.6 kg
[2019-08-15] MEDS ORDERED: NORCO 10-325 T1 EACH PO (15:25)
[2019-08-15] MEDS ORDERED: EPZICOM1 TAB (15:25)
[2019-08-15 17:34] VITALS: BP 154/74
--- NOTE | 2019-08-15 18:23 | NUR ---
PT SITTING UP ON THE SIDE OF THE BED EATING DINNER. NO ACUTE DISTRESS. AAOX4. DENIES DIZZINESS AT THIS TIME. RESP EVEN AND UNLABORED ON RA. IV TO R HAND, NO REDNESS OR SWELLING. FALL PRECAUTIONS IN PLACE. PT AMBULATED TO BATHROOM AND BACK TO BED WITH MINIMAL ASSISTANCE. CALL LIGHT WITHIN REACH. WILL ENDORSE TO ONCOMING SHIFT.
[2019-08-15 19:02] LABS: AMPHETAMINE QUAL UR NONE DETECTED (See below)
--- NOTE | 2019-08-15 19:42 | NUR ---
PT CURRENTLY RESTING IN BED, NO ACUTE DISTRESS. A/O X4. TELE #23 SHOWING SINUS RHYTHM, DENIES CHEST PAIN. DENIES DIZZINESS. PULSES PALPABLE IN ALL EXTREMITIES, NO EDEMA NOTED. LUNG SOUNDS CTA BILATERALLY, DENIES SOB. BOWELS SOUNDS ACTIVE, LAST BM 08/15/19. VOIDING WELL. GENERALIZED WEAKNESS, AMBULATORY WITH WALKER. BUE DRY SCABS VINI. SMALL ABRASION TO MID FOREHEAD, VINI. IV PATENT AND INTACT. BED IN LOWEST POSITION, SIDE RAILS UP X2, CALL LIGHT WITHIN REACH. WILL CONTINUE TO MONITOR.
[2019-08-15 20:14] VITALS: BP 154/81
--- NOTE | 2019-08-16 00:18 | NUR ---
ASSISTED PT TO RESTROOM. CURRENTLY RESTING IN BED, NO ACUTE DISTRESS. WILL CONTINUE TO MONITOR.
[2019-08-16 05:15] VITALS: BP 146/92
--- NOTE | 2019-08-16 06:00 | NUR ---
PT SLEPT PERIODICALLY THROUGHOUT NIGHT, NO ACUTE DISTRESS. ALL NEEDS MET AND ATTENDED TO. NO SIGNIFICANT CHANGES. IV PATENT AND INTACT. BED IN LOWEST POSITION, SIDE RAILS UP X2, CALL LIGHT WITHIN REACH. WILL ENDORSE CARE TO ONCOMING NURSE.
--- NOTE | 2019-08-16 07:45 | NUR ---
RECEIVED PT LYING IN BED, A/A. BREATHING EQUAL/UNLABORED ON RA. NO ACUTE DISTRESS. C/O BACK PAIN. WILL MEDICATE. IVF RUNNING AT 50ML/HR. NO REDNESS/SWELLING TO IV SITE. BED IN LOW POSITION, CALL LIGHT IN REACH, SAFETY PRECAUTIONS IN PLACE. WILL CONTINUE TO MONITOR
[2019-08-16 08:51] LABS: CALCIUM 8.6 mg/dL (8.5-10.1); CARBON DIOXIDE 28.8 mmol/L (21-32); CHLORIDE SERUM 106 mmol/L (98-107); CHOLESTEROL 195 mg/dL (<200); CREATININE SERUM 0.8 mg/dL (0.6-1.0); GLUCOSE SERUM 92 mg/dL (74-106); HDL CHOLESTEROL 49 mg/dL (40-60); POTASSIUM SERUM 4.1 mmol/L (3.5-5.1); SODIUM SERUM 144 mmol/L (136-145); TRIGLYCERIDES 144 mg/dL (<150)
[2019-08-16 13:05] VITALS: BP 139/87
--- NOTE | 2019-08-16 16:12 | NUR ---
PT SITTING IN BED A/A. BREATHING EQUAL/UNLABORED ON RA. NO PAIN. C/O NAUSEA, MED GIVEN. IVF RUNNING AT 50 ML/HR. NO REDNESS/SWELLING TO IV SITE. BED IN LOW POSITION, CALL LIGHT IN REACH, SAFETY PRECAUTIONS IN PLACE. WILL CONTINUE TO MONITOR
[2019-08-16 17:51] VITALS: BP 146/95
--- NOTE | 2019-08-16 18:36 | NUR ---
PT SITTING UP IN BED A/A. BREATHING EQUAL/ UNLABORED ON RA. NO ACUTE PAIN/ DISTRESS. IVF RUNNING AT 100ML/HR. NO REDNESS/ SWELLING TO IV SITE. BED IN LOW POSITION, CALL LIGHT IN REACH, SAFETY PRECAUTIONS IN PLACE. WILL ENDORSE TO ON COMING NURSE
[2019-08-16 19:44] VITALS: BP 148/80
--- NOTE | 2019-08-16 20:00 | NUR ---
RECEIVED PT IN BED,RESTING QUIETLY. ALERT AND ORIENTED. DENIES HEADACHE/DIZZINESS. RESP. EVEN AND UNLABORED. ON ROOM AIR, NO ACUTE DISTRESS NOTED. SR ON THE MONITOR, DENIES CHEST PAIN OR ANY DISCOMFORT AT THIS TIME. IVF, NS AT 50ML/HR, INTACT AND INFUSING VIA RT HAND, SITE CLEAR. S/P FALL AT HOME, SCABS TO BUE AND ABRASION TO FOREHEAD. ASSISTED WITH HS CARE. CALL LIGHT WITHIN REACH. INSTRUCTED TO CALL FOR ASSIST. IF NEEDED. PT VERBALIZED UNDERSTANDING. WILL CONTINUE TO MONITOR.
--- NOTE | 2019-08-16 23:03 | NUR ---
COMPLAINED OF BACK PAIN, 5/10, REQUESTING PAIN MED, MEDICATED WITH NORCO PO ORDERED. WILL CONTINUE TO MONITOR.
--- NOTE | 2019-08-17 01:17 | NUR ---
RESTING QUIETLY IN BED WITH EYES CLOSED, APPEARS ASLEEP, EASILY AROUSABLE. RESP. EVEN AND UNLABORED. NO ACUTE DISTRESS NOTED. CALL LIGHT WITHIN REACH. WILL CONTINUE TO MONITOR.
[2019-08-17 04:45] VITALS: BP 161/80
--- NOTE | 2019-08-17 06:09 | NUR ---
SLEPT WELL . NO SIGNIFICANT CHANGE NOTED. REMAINS SR ON THE MONITOR. DENIES CHEST PAIN OR ANY DISCOMFORT AT THIS TIME. AFEBRILE AND VITAL SIGNS STABLE. RESP. EVEN AND UNLABORED. NO ACUTE DISTRESS NOTED. KEPT COMFORTABLE. CALL LIGHT WITHIN REACH. WILL CONTINUE TO MONITOR.
--- NOTE | 2019-08-17 07:30 | NUR ---
RECEIVED PATIENT FROM NIGHT NURSE. AWAKE, ALERT AND ORIENTED TO PERSON, PLACE, TIME AND SITUATION. NO C/O DIZZINESS. MONITOR SHOWING SINUS RHYTHM; RATE 80. C/O BACK PAIN. MEDICATED WITH NORCO PER EMAR. PATIENT USING BEDSIDE COMODE FOR TOILET NEEDS.
[2019-08-17 09:30] VITALS: BP 152/74
--- NOTE | 2019-08-17 09:32 | NUR ---
SEEN BY DR TANNER. PATIENT EXPRESSED WISH TO BE DISCHARGED HOME TODAY. SHE APPARENTLY HAS SOME SPECIALIST APPOINTMENTS TOMORROW THAT SHE WANTS TO KEEP. DOCTOR WANTS TO SEE PHYSICAL THERAPY RECOMMENDATION FIRST PATIENT MAY NEED REHAB. PHYSICAL THERAPY AT BEDSIDE.
[2019-08-17 11:48] VITALS: BP 152/82
--- NOTE | 2019-08-17 12:46 | NUR ---
PER PHYSICAL THERAPIST: - PATIENT DOES NOT QUALIFY FOR SNF. SPOKE WITH DR TANNER PER PHONE. PATIENT TO UT HOME WITH HOME HEALTH. PATIENT AWARE.
[2019-08-17 14:10] VITALS: BP 152/82
--- NOTE | 2019-08-17 15:28 | NUR ---
AT 1330 - IV INFUSION DISCONTINUED AND PATIENT TAKEN OFF CARDIAC MONITORING. [facility] WILL BE TAKING HER HOME AT 1530 AT 1515 - IV CATHETER REMOVED INTACT. PATIENT DRESSED AND PREPARED FOR DISCHARGE. PRINTED DISCHARGE INSTRUCTIONS GIVEN AND EXPLAINED TO PATIENT. PATIENT ALSO INSTRUCTED IN MEASURES TO TAKE IN PREVENTING FALLS AT HOME. PATIENT VERBALIZED UNDERSTANDING.
--- NOTE | 2019-08-17 15:54 | NUR ---
DISCHARGED HOME WITH FRIEND. TAKEN TO DISCHARGE OFFICE IN WHEELCHAIR BY CATRACHITO.
== END 2019-08-17 15:52 | DRG 605 ==
LOC: ED 07:46 → DU 14:06
PROVIDERS: Specialist; ADMIT Internal Medicine Pulmonary Disease
DX: S00.01XA Abrasion of scalp, initial encounter (principal); R55 Syncope and collapse; I10 Essential (primary) hypertension; F32.9 Major depressive disorder, single episode, unspecified; M19.90 Unspecified osteoarthritis, unspecified site; E66.9 Obesity, unspecified; G89.29 Other chronic pain; M54.5 Low back pain; W18.39XA Other fall on same level, initial encounter; Y93.89 Activity, other specified; Y92.091 Bathroom in other non-institutional residence as the place of occurrence of the external cause; Z68.30 Body mass index [BMI] 30.0-30.9, adult
CPT/HCPCS: 90658; 97116-GP; 97530-GP; C9113; G0378; G0480; J2405; J7030; J8597; Q0092

== ENCOUNTER 2019-09-05 09:30 | Emergency (ER) | payer OTHER ==
[~2019-09-05] VITALS: Ht 160 cm; Wt 76.7 kg
[~2019-09-05 09:30] MED LIST changes: +EPZICOM1 TAB; +LOSARTAN POTAS100 M1 PO; +NORCO 10-325 T1 EACH PO; +NORCO1 TA2 PO
[2019-09-05 09:33] VITALS: Ht 160 cm; Wt 76.7 kg
[2019-09-05 10:24] LABS: CALCIUM 8.3 mg/dL (8.5-10.1); CARBON DIOXIDE 28.4 mmol/L (21-32); CHLORIDE SERUM 106 mmol/L (98-107); CREATININE SERUM 1.1 mg/dL (0.6-1.0); GLUCOSE SERUM 118 mg/dL (74-106); POTASSIUM SERUM 3.9 mmol/L (3.5-5.1); SODIUM SERUM 141 mmol/L (136-145)
[2019-09-05 10:29] LABS: ALKALINE PHOSPHATASE 78 U/L (46-116); ALT/SGPT 16 U/L (14-59); AST/SGOT 11 U/L (15-37); BILIRUBIN TOTAL 0.16 mg/dL (0.20-1.00); TOTAL PROTEIN, SERUM 6.8 g/dL (6.4-8.2)
[2019-09-05 10:35] LABS: ALBUMIN 3.2 g/dL (3.4-5.0)
[2019-09-05 11:02] LABS: BASOPHIL % 0.9 % (0-2); PLATELET COUNT 251 x10^3mcL (130-400); RED CELL DISTRIBUTION WIDTH 13.6 % (11.5-14.5)
[2019-09-05 12:55] VITALS: BP 155/78
== END 2019-09-05 12:55 | disposition home or self-care (01) ==
LOC: ED 09:30
PROVIDERS: Emergency Medicine
DX: K44.9 Diaphragmatic hernia without obstruction or gangrene (principal); I10 Essential (primary) hypertension; F32.9 Major depressive disorder, single episode, unspecified; M19.90 Unspecified osteoarthritis, unspecified site; G89.29 Other chronic pain; Z88.8 Allergy status to other drugs, medicaments and biological substances
CPT/HCPCS: 36415; 83880; J2270; Q0092

== ENCOUNTER 2019-09-06 14:24 | Emergency (ER) | payer OTHER ==
[~2019-09-06] VITALS: Ht 160 cm; Wt 77.1 kg
[2019-09-06 15:04] VITALS: Ht 160 cm; Wt 77.1 kg
[2019-09-06 15:40] LABS: BASOPHIL % 0.4 % (0-2); PLATELET COUNT 267 x10^3mcL (130-400); RED CELL DISTRIBUTION WIDTH 13.4 % (11.5-14.5)
[2019-09-06 15:48] LABS: CHLORIDE SERUM 104 mmol/L (98-107); CREATININE SERUM 1.2 mg/dL (0.6-1.0); GLUCOSE SERUM 99 mg/dL (74-106); SODIUM SERUM 140 mmol/L (136-145)
[2019-09-06 15:54] LABS: ALBUMIN 3.7 g/dL (3.4-5.0); ALKALINE PHOSPHATASE 90 U/L (46-116); ALT/SGPT 18 U/L (14-59); AST/SGOT 15 U/L (15-37); BILIRUBIN TOTAL 0.23 mg/dL (0.20-1.00); LIPASE 98 IU/L (73-393); TOTAL PROTEIN, SERUM 7.5 g/dL (6.4-8.2)
[2019-09-06 15:57] LABS: POTASSIUM SERUM 4.2 mmol/L (3.5-5.1)
[2019-09-06 18:40] VITALS: BP 151/68
== END 2019-09-06 18:40 | disposition home or self-care (01) ==
LOC: ED 14:24
PROVIDERS: Emergency Medicine
DX: K29.70 Gastritis, unspecified, without bleeding (principal); I10 Essential (primary) hypertension; G89.29 Other chronic pain; F32.9 Major depressive disorder, single episode, unspecified; K21.9 Gastro-esophageal reflux disease without esophagitis; Z98.890 Other specified postprocedural states; Z88.8 Allergy status to other drugs, medicaments and biological substances
CPT/HCPCS: 36415; Q0092

== ENCOUNTER 2019-09-10 06:26 | Emergency (ER) | payer OTHER ==
[~2019-09-10] VITALS: Ht 160 cm; Wt 74.8 kg
[2019-09-10 06:34] VITALS: Ht 160 cm; Wt 74.8 kg
[2019-09-10 07:29] LABS: BASOPHIL % 0.6 % (0-2); PLATELET COUNT 249 x10^3mcL (130-400); RED CELL DISTRIBUTION WIDTH 13.2 % (11.5-14.5)
[2019-09-10 07:46] LABS: CALCIUM 9.4 mg/dL (8.5-10.1); CHLORIDE SERUM 103 mmol/L (98-107); CREATININE SERUM 1.1 mg/dL (0.6-1.0); GLUCOSE SERUM 105 mg/dL (74-106); POTASSIUM SERUM 3.8 mmol/L (3.5-5.1); SODIUM SERUM 139 mmol/L (136-145)
[2019-09-10 07:50] LABS: ALBUMIN 3.8 g/dL (3.4-5.0); ALKALINE PHOSPHATASE 88 U/L (46-116); ALT/SGPT 18 U/L (14-59); AST/SGOT 14 U/L (15-37); BILIRUBIN TOTAL 0.28 mg/dL (0.20-1.00); LIPASE 87 IU/L (73-393); TOTAL PROTEIN, SERUM 7.5 g/dL (6.4-8.2)
[2019-09-10 09:36] LABS: microscopic required? NO
[2019-09-10 10:07] LABS: UA SPECIFIC GRAVITY 1.015 (1.005-1.035); urine erythrocyte NEGATIVE (NEGATIVE)
[2019-09-10 11:12] VITALS: BP 180/88
== END 2019-09-10 11:12 | disposition home or self-care (01) ==
LOC: ED 06:26
PROVIDERS: Emergency Medicine
DX: R10.816 Epigastric abdominal tenderness (principal); G89.29 Other chronic pain; F32.9 Major depressive disorder, single episode, unspecified; M19.90 Unspecified osteoarthritis, unspecified site; K21.9 Gastro-esophageal reflux disease without esophagitis; Z87.19 Personal history of other diseases of the digestive system; Z98.890 Other specified postprocedural states; Z88.8 Allergy status to other drugs, medicaments and biological substances
CPT/HCPCS: J2060; J2765; J3490; Q0092

== ENCOUNTER 2019-09-25 11:20 | Emergency (ER) | payer OTHER ==
[~2019-09-25] VITALS: Ht 160 cm; Wt 74.8 kg
[2019-09-25 11:22] VITALS: Ht 160 cm; Wt 74.8 kg
[2019-09-25 14:24] LABS: BASOPHIL % 0.8 % (0-2); PLATELET COUNT 274 x10^3mcL (130-400); RED CELL DISTRIBUTION WIDTH 14.1 % (11.5-14.5)
[2019-09-25 14:32] LABS: CARBON DIOXIDE 29.1 mmol/L (21-32); CHLORIDE SERUM 104 mmol/L (98-107); CREATININE SERUM 1.1 mg/dL (0.6-1.0); GLUCOSE SERUM 110 mg/dL (74-106); POTASSIUM SERUM 3.3 mmol/L (3.5-5.1); SODIUM SERUM 142 mmol/L (136-145)
[2019-09-25 14:36] LABS: ALBUMIN 3.8 g/dL (3.4-5.0); ALKALINE PHOSPHATASE 99 U/L (46-116); ALT/SGPT 20 U/L (14-59); AST/SGOT 16 U/L (15-37); BILIRUBIN TOTAL 0.5 mg/dL (0.20-1.00); LIPASE 103 IU/L (73-393); TOTAL PROTEIN, SERUM 7.9 g/dL (6.4-8.2)
[2019-09-25 15:21] VITALS: BP 153/81
== END 2019-09-25 16:30 | disposition home or self-care (01) ==
LOC: ED 11:20
PROVIDERS: Emergency Medicine
DX: R10.816 Epigastric abdominal tenderness (principal); R11.0 Nausea; R19.7 Diarrhea, unspecified; I10 Essential (primary) hypertension; K21.9 Gastro-esophageal reflux disease without esophagitis; Z98.890 Other specified postprocedural states; Z88.8 Allergy status to other drugs, medicaments and biological substances
CPT/HCPCS: J2270; J2405; Q0162

== ENCOUNTER 2019-09-29 13:10 | Emergency (ER) | payer OTHER ==
[~2019-09-29] VITALS: Ht 160 cm; Wt 74.8 kg
[2019-09-29 13:21] VITALS: Ht 160 cm; Wt 74.8 kg
[2019-09-29 13:48] LABS: PLATELET COUNT 249 x10^3mcL (130-400); RED CELL DISTRIBUTION WIDTH 14.5 % (11.5-14.5)
[2019-09-29 13:50] LABS: BASOPHIL % 2.4 % (0-2)
[2019-09-29 14:24] LABS: CALCIUM 8.8 mg/dL (8.5-10.1); CARBON DIOXIDE 33.4 mmol/L (21-32); CHLORIDE SERUM 102 mmol/L (98-107); GLUCOSE SERUM 101 mg/dL (74-106); POTASSIUM SERUM 3.8 mmol/L (3.5-5.1); SODIUM SERUM 142 mmol/L (136-145)
[2019-09-29 14:37] LABS: ALBUMIN 3.4 g/dL (3.4-5.0); ALKALINE PHOSPHATASE 86 U/L (46-116); ALT/SGPT 20 U/L (14-59); AST/SGOT 17 U/L (15-37); BILIRUBIN TOTAL 0.22 mg/dL (0.20-1.00); CHOLESTEROL 230 mg/dL (<200); CHOLESTEROL/HDL RATIO 3.8; HDL CHOLESTEROL 61 mg/dL (40-60); LIPASE 101 IU/L (73-393); TOTAL PROTEIN, SERUM 7.1 g/dL (6.4-8.2); TRIGLYCERIDES 125 mg/dL (<150)
[2019-09-29 15:41] VITALS: BP 158/86
== END 2019-09-29 16:52 | disposition home or self-care (01) ==
LOC: ED 13:10
PROVIDERS: Specialist
DX: G89.29 Other chronic pain (principal); R10.13 Epigastric pain; I10 Essential (primary) hypertension; K21.9 Gastro-esophageal reflux disease without esophagitis; Z98.890 Other specified postprocedural states; Z88.8 Allergy status to other drugs, medicaments and biological substances
CPT/HCPCS: 36415; J0780; J1200; Q0092

== ENCOUNTER 2019-10-04 09:04 | Emergency (ER) | payer OTHER ==
[~2019-10-04] VITALS: Ht 160 cm; Wt 74.8 kg
[2019-10-04 09:07] VITALS: Ht 160 cm; Wt 74.8 kg
[2019-10-04 09:39] LABS: BASOPHIL % 1.1 % (0-2); PLATELET COUNT 289 x10^3mcL (130-400); RED CELL DISTRIBUTION WIDTH 15.1 % (11.5-14.5)
[2019-10-04 09:53] LABS: CALCIUM 8.9 mg/dL (8.5-10.1); CARBON DIOXIDE 31.2 mmol/L (21-32); CHLORIDE SERUM 102 mmol/L (98-107); CREATININE SERUM 1.1 mg/dL (0.6-1.0); GLUCOSE SERUM 108 mg/dL (74-106); POTASSIUM SERUM 3.6 mmol/L (3.5-5.1); SODIUM SERUM 142 mmol/L (136-145)
[2019-10-04 09:57] LABS: ALBUMIN 3.6 g/dL (3.4-5.0); ALKALINE PHOSPHATASE 81 U/L (46-116); ALT/SGPT 23 U/L (14-59); AST/SGOT 23 U/L (15-37); LIPASE 94 IU/L (73-393); TOTAL PROTEIN, SERUM 7.6 g/dL (6.4-8.2)
[2019-10-04 13:13] VITALS: BP 155/86
== END 2019-10-04 13:13 | disposition home or self-care (01) ==
LOC: ED 09:04
PROVIDERS: Emergency Medicine
DX: R10.816 Epigastric abdominal tenderness (principal); R10.10 Upper abdominal pain, unspecified; I10 Essential (primary) hypertension; R11.0 Nausea; M19.90 Unspecified osteoarthritis, unspecified site; K21.9 Gastro-esophageal reflux disease without esophagitis; Z98.890 Other specified postprocedural states; Z88.8 Allergy status to other drugs, medicaments and biological substances
CPT/HCPCS: J1885; J2270; J2405; J7030; Q0092; Q9967

== ENCOUNTER 2019-10-05 10:45 | Emergency (ER) | payer OTHER ==
[~2019-10-05] VITALS: Ht 160 cm; Wt 74.4 kg
[2019-10-05 11:24] VITALS: Ht 160 cm; Wt 74.4 kg
[2019-10-05 12:25] LABS: BASOPHIL % 0.7 % (0-2); PLATELET COUNT 276 x10^3mcL (130-400); RED CELL DISTRIBUTION WIDTH 14.6 % (11.5-14.5)
[2019-10-05 13:43] LABS: ALBUMIN 3.2 g/dL (3.4-5.0); ALKALINE PHOSPHATASE 65 U/L (46-116); ALT/SGPT 21 U/L (14-59); AST/SGOT 21 U/L (15-37); BILIRUBIN TOTAL 0.2 mg/dL (0.20-1.00); CALCIUM 8.7 mg/dL (8.5-10.1); CHLORIDE SERUM 102 mmol/L (98-107); GLUCOSE SERUM 103 mg/dL (74-106); POTASSIUM SERUM 4.1 mmol/L (3.5-5.1); SODIUM SERUM 140 mmol/L (136-145); TOTAL PROTEIN, SERUM 6.8 g/dL (6.4-8.2)
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
[2019-10-05 16:52] VITALS: BP 156/84
== END 2019-10-05 16:52 | disposition home or self-care (01) ==
LOC: ED 10:45
PROVIDERS: Emergency Medicine
DX: R07.89 Other chest pain (principal)
CPT/HCPCS: 83880; J1885; J2270; J2405; Q0092

== ENCOUNTER 2019-10-06 10:43 | Emergency (ER) | payer OTHER ==
[~2019-10-06] VITALS: Ht 160 cm; Wt 72.6 kg
[2019-10-06 10:53] VITALS: BP 114/99; Ht 160 cm; Wt 72.6 kg
== END 2019-10-06 12:16 | disposition home or self-care (01) ==
LOC: ED 10:43
DX: M54.5 Low back pain (principal); G89.29 Other chronic pain
CPT/HCPCS: J1885

== ENCOUNTER 2019-10-08 08:55 | Inpatient (IN) | payer OTHER ==
[~2019-10-08] VITALS: Ht 160 cm; Wt 72.1 kg
[2019-10-08 09:07] VITALS: Ht 160 cm; Wt 72.1 kg
[2019-10-08 10:15] LABS: BASOPHIL % 0.9 % (0-2); PLATELET COUNT 285 x10^3mcL (130-400); RED CELL DISTRIBUTION WIDTH 14.4 % (11.5-14.5)
[2019-10-08 11:06] LABS: ALBUMIN 3.5 g/dL (3.4-5.0); ALKALINE PHOSPHATASE 72 U/L (46-116); ALT/SGPT 29 U/L (14-59); AST/SGOT 27 U/L (15-37); BILIRUBIN TOTAL 0.3 mg/dL (0.20-1.00); CALCIUM 9.5 mg/dL (8.5-10.1); CARBON DIOXIDE 28.1 mmol/L (21-32); CHLORIDE SERUM 104 mmol/L (98-107); CREATININE SERUM 1.2 mg/dL (0.6-1.0); GLUCOSE SERUM 104 mg/dL (74-106); POTASSIUM SERUM 3.4 mmol/L (3.5-5.1); SODIUM SERUM 140 mmol/L (136-145); TOTAL PROTEIN, SERUM 7.2 g/dL (6.4-8.2)
[2019-10-08 15:00] VITALS: BP 163/72
[2019-10-08 17:59] VITALS: BP 181/91
[2019-10-08 18:37] VITALS: BP 159/96
[2019-10-08 21:11] VITALS: BP 150/92
[2019-10-09 05:10] VITALS: BP 152/89
[2019-10-09 09:00] VITALS: BP 149/92
[2019-10-09 15:30] VITALS: BP 156/93
[2019-10-09 17:10] VITALS: BP 147/79
[2019-10-10 05:39] VITALS: BP 128/77
[2019-10-10 09:00] VITALS: BP 126/62
[2019-10-10 10:59] VITALS: BP 126/62
== END 2019-10-10 12:26 | disposition home or self-care (01) | DRG 918 ==
LOC: ED 08:55 → DU 12:12
PROVIDERS: Student in an Organized Health Care Education/Training Program; ADMIT Internal Medicine Pulmonary Disease
DX: T40.2X1A Poisoning by other opioids, accidental (unintentional), initial encounter (principal); F11.921 Opioid use, unspecified with intoxication delirium; R79.89 Other specified abnormal findings of blood chemistry; R07.9 Chest pain, unspecified; R11.2 Nausea with vomiting, unspecified; M47.892 Other spondylosis, cervical region; M47.894 Other spondylosis, thoracic region; M47.896 Other spondylosis, lumbar region; G89.29 Other chronic pain; I10 Essential (primary) hypertension; E78.00 Pure hypercholesterolemia, unspecified; Z68.28 Body mass index [BMI] 28.0-28.9, adult; Y92.009 Unspecified place in unspecified non-institutional (private) residence as the place of occurrence of the external cause
CPT/HCPCS: 83880; G0378; J0360; J1650; J1885; J2405

== ENCOUNTER 2019-10-12 09:22 | Observation (INO) | payer OTHER ==
[~2019-10-12] VITALS: Ht 160 cm; Wt 72.7 kg
[2019-10-12 09:40] VITALS: Ht 160 cm; Wt 72.7 kg
[2019-10-12] MEDS ORDERED: ZOF4 PO (20:26)
[2019-10-12 22:20] VITALS: BP 134/79
[2019-10-13 05:32] VITALS: BP 132/64
[2019-10-13 06:37] LABS: CALCIUM 8.5 mg/dL (8.5-10.1); CARBON DIOXIDE 28.5 mmol/L (21-32); CHLORIDE SERUM 105 mmol/L (98-107); CREATININE SERUM 1.3 mg/dL (0.6-1.0); GLUCOSE SERUM 95 mg/dL (74-106); POTASSIUM SERUM 3.8 mmol/L (3.5-5.1); SODIUM SERUM 142 mmol/L (136-145)
[2019-10-13 08:49] LABS: PLATELET COUNT 310 x10^3mcL (130-400)
[2019-10-13 08:53] LABS: RED CELL DISTRIBUTION WIDTH 14.7 % (11.5-14.5)
[2019-10-13 09:18] VITALS: BP 139/69
[2019-10-13 13:31] VITALS: BP 136/86
[2019-10-13 16:36] VITALS: BP 136/86
[2019-10-13 17:35] VITALS: BP 187/93
== END 2019-10-13 18:10 ==
LOC: ED 09:22 → MU 20:07
PROVIDERS: ADMIT Internal Medicine Pulmonary Disease
DX: M54.9 Dorsalgia, unspecified (principal); G89.29 Other chronic pain; K21.9 Gastro-esophageal reflux disease without esophagitis; I10 Essential (primary) hypertension; F41.9 Anxiety disorder, unspecified; M19.90 Unspecified osteoarthritis, unspecified site; F11.20 Opioid dependence, uncomplicated; E87.6 Hypokalemia; K44.9 Diaphragmatic hernia without obstruction or gangrene
CPT/HCPCS: 72072; 97116-GP; 97530-GP; G0378; J1644; J1885; J2270; J2405; J7030; Q0162

== ENCOUNTER 2019-11-03 09:29 | Emergency (ER) | payer OTHER ==
[~2019-11-03] VITALS: Ht 167.6 cm; Wt 72.6 kg
[~2019-11-03 09:29] MED LIST changes: +ZOF4 PO
[2019-11-03 09:38] VITALS: Ht 167.6 cm; Wt 72.6 kg
[2019-11-03 12:03] VITALS: BP 140/70
== END 2019-11-03 12:03 | disposition home or self-care (01) ==
LOC: ED 09:29
DX: G89.29 Other chronic pain (principal); M54.5 Low back pain; I10 Essential (primary) hypertension; M19.90 Unspecified osteoarthritis, unspecified site; K21.9 Gastro-esophageal reflux disease without esophagitis; Z98.890 Other specified postprocedural states; Z88.8 Allergy status to other drugs, medicaments and biological substances
CPT/HCPCS: J1885; J2930

== ENCOUNTER 2019-11-12 13:10 | Emergency (ER) | payer OTHER ==
[~2019-11-12] VITALS: Ht 160 cm; Wt 68.0 kg
[2019-11-12 13:27] VITALS: Ht 160 cm; Wt 68.0 kg
[2019-11-12 14:05] LABS: BASOPHIL % 1.4 % (0-2); PLATELET COUNT 297 x10^3mcL (130-400); RED CELL DISTRIBUTION WIDTH 15.3 % (11.5-14.5)
[2019-11-12 14:42] VITALS: BP 138/83
[2019-11-12 14:58] LABS: CALCIUM 9.6 mg/dL (8.5-10.1); CARBON DIOXIDE 24.9 mmol/L (21-32); CHLORIDE SERUM 105 mmol/L (98-107); CREATININE SERUM 1.1 mg/dL (0.6-1.0); GLUCOSE SERUM 115 mg/dL (74-106); POTASSIUM SERUM 3.8 mmol/L (3.5-5.1); SODIUM SERUM 144 mmol/L (136-145)
[2019-11-12 15:08] LABS: ALBUMIN 3.6 g/dL (3.4-5.0); ALKALINE PHOSPHATASE 87 U/L (46-116); ALT/SGPT 21 U/L (14-59); AST/SGOT 14 U/L (15-37); BILIRUBIN TOTAL 0.6 mg/dL (0.20-1.00); LIPASE 91 IU/L (73-393); TOTAL PROTEIN, SERUM 7.8 g/dL (6.4-8.2)
== END 2019-11-12 16:50 | disposition home or self-care (01) ==
LOC: ED 13:10
PROVIDERS: Emergency Medicine
DX: R10.816 Epigastric abdominal tenderness (principal); G89.29 Other chronic pain; I10 Essential (primary) hypertension; M19.90 Unspecified osteoarthritis, unspecified site; K21.9 Gastro-esophageal reflux disease without esophagitis; Z98.890 Other specified postprocedural states; Z88.8 Allergy status to other drugs, medicaments and biological substances
CPT/HCPCS: 36415; J2270; Q0092; Q0162

== ENCOUNTER 2019-11-27 06:22 | Emergency (ER) | payer OTHER ==
[~2019-11-27] VITALS: Ht 170.2 cm; Wt 72.6 kg
[2019-11-27 06:31] VITALS: Ht 170.2 cm; Wt 72.6 kg
[2019-11-27 12:49] VITALS: BP 138/84
== END 2019-11-27 12:49 | disposition home or self-care (01) ==
LOC: ED 06:22
DX: G89.29 Other chronic pain (principal); M54.5 Low back pain; I10 Essential (primary) hypertension; K21.9 Gastro-esophageal reflux disease without esophagitis; Z98.890 Other specified postprocedural states; Z88.8 Allergy status to other drugs, medicaments and biological substances
CPT/HCPCS: J1885; J3490

== ENCOUNTER 2020-01-16 14:41 | Emergency (ER) | payer OTHER ==
[~2020-01-16] VITALS: Ht 160 cm; Wt 72.6 kg
[2020-01-16 14:50] VITALS: Ht 160 cm; Wt 72.6 kg
[2020-01-16 15:07] LABS: BASOPHIL % 0.8 % (0-2); PLATELET COUNT 302 x10^3mcL (130-400); RED CELL DISTRIBUTION WIDTH 14.8 % (11.5-14.5)
[2020-01-16 15:16] LABS: CALCIUM 9.2 mg/dL (8.5-10.1); CARBON DIOXIDE 25.4 mmol/L (21-32); CHLORIDE SERUM 105 mmol/L (98-107); CREATININE SERUM 1.3 mg/dL (0.6-1.0); GLUCOSE SERUM 115 mg/dL (74-106); POTASSIUM SERUM 3.7 mmol/L (3.5-5.1); SODIUM SERUM 142 mmol/L (136-145)
[2020-01-16 15:20] LABS: ALBUMIN 3.5 g/dL (3.4-5.0); ALKALINE PHOSPHATASE 82 U/L (46-116); ALT/SGPT 18 U/L (14-59); AST/SGOT 14 U/L (15-37); BILIRUBIN TOTAL 0.3 mg/dL (0.20-1.00); TOTAL PROTEIN, SERUM 7.1 g/dL (6.4-8.2)
[2020-01-16 19:16] VITALS: BP 149/77
== END 2020-01-16 19:10 | disposition home or self-care (01) ==
LOC: ED 14:41
PROVIDERS: Emergency Medicine
DX: R07.89 Other chest pain (principal); K21.9 Gastro-esophageal reflux disease without esophagitis; G89.29 Other chronic pain; I10 Essential (primary) hypertension; M19.90 Unspecified osteoarthritis, unspecified site; Z98.890 Other specified postprocedural states; Z88.8 Allergy status to other drugs, medicaments and biological substances
CPT/HCPCS: 83880; J2060; J3490; Q0092

== ENCOUNTER 2020-01-23 18:20 | Emergency (ER) | payer OTHER ==
[~2020-01-23] VITALS: Ht 160 cm; Wt 70.3 kg
[2020-01-23 18:28] VITALS: Ht 160 cm; Wt 70.3 kg
[2020-01-23 19:16] LABS: CARBON DIOXIDE 27.7 mmol/L (21-32); CHLORIDE SERUM 103 mmol/L (98-107); CREATININE SERUM 1.1 mg/dL (0.6-1.0); GLUCOSE SERUM 96 mg/dL (74-106); POTASSIUM SERUM 3.7 mmol/L (3.5-5.1); SODIUM SERUM 140 mmol/L (136-145)
[2020-01-23 19:18] LABS: BASOPHIL % 0.9 % (0-2); PLATELET COUNT 293 x10^3mcL (130-400)
[2020-01-23 19:21] LABS: ALBUMIN 3.4 g/dL (3.4-5.0); ALKALINE PHOSPHATASE 83 U/L (46-116); ALT/SGPT 14 U/L (14-59); AST/SGOT 10 U/L (15-37); BILIRUBIN TOTAL 0.12 mg/dL (0.20-1.00); LIPASE 112 IU/L (73-393); RED CELL DISTRIBUTION WIDTH 14.9 % (11.5-14.5); TOTAL PROTEIN, SERUM 6.8 g/dL (6.4-8.2)
[2020-01-23 20:16] VITALS: BP 131/80
== END 2020-01-23 20:16 | disposition home or self-care (01) ==
LOC: ED 18:20
PROVIDERS: Emergency Medicine
DX: K29.70 Gastritis, unspecified, without bleeding (principal); I10 Essential (primary) hypertension; M19.90 Unspecified osteoarthritis, unspecified site; K21.9 Gastro-esophageal reflux disease without esophagitis; G89.29 Other chronic pain; Z98.890 Other specified postprocedural states; Z88.8 Allergy status to other drugs, medicaments and biological substances
CPT/HCPCS: 36415

== ENCOUNTER 2020-01-25 12:05 | Emergency (ER) | payer OTHER ==
[~2020-01-25] VITALS: Ht 160 cm; Wt 70.3 kg
[2020-01-25 12:14] VITALS: Ht 160 cm; Wt 70.3 kg
[2020-01-25 13:14] LABS: BASOPHIL % 0.9 % (0-2); PLATELET COUNT 288 x10^3mcL (130-400); RED CELL DISTRIBUTION WIDTH 14.7 % (11.5-14.5)
[2020-01-25 13:18] LABS: CALCIUM 9.2 mg/dL (8.5-10.1); CARBON DIOXIDE 31.3 mmol/L (21-32); CHLORIDE SERUM 107 mmol/L (98-107); CREATININE SERUM 1.1 mg/dL (0.6-1.0); GLUCOSE SERUM 132 mg/dL (74-106); POTASSIUM SERUM 3.9 mmol/L (3.5-5.1); SODIUM SERUM 144 mmol/L (136-145)
[2020-01-25 13:25] LABS: ALBUMIN 3.4 g/dL (3.4-5.0); ALKALINE PHOSPHATASE 81 U/L (46-116); ALT/SGPT 18 U/L (14-59); AST/SGOT 20 U/L (15-37); BILIRUBIN TOTAL 0.2 mg/dL (0.20-1.00); LIPASE 109 IU/L (73-393); TOTAL PROTEIN, SERUM 6.9 g/dL (6.4-8.2)
[2020-01-25 14:05] VITALS: BP 140/81
== END 2020-01-25 14:05 | disposition home or self-care (01) ==
LOC: ED 12:05
PROVIDERS: Emergency Medicine
DX: R10.13 Epigastric pain (principal); G89.29 Other chronic pain; M54.9 Dorsalgia, unspecified; K21.9 Gastro-esophageal reflux disease without esophagitis; I10 Essential (primary) hypertension; Z88.8 Allergy status to other drugs, medicaments and biological substances
CPT/HCPCS: 36415

== ENCOUNTER 2020-01-30 15:06 | Emergency (ER) | payer OTHER ==
[~2020-01-30] VITALS: Ht 157.5 cm; Wt 70.8 kg
[2020-01-30 15:19] VITALS: Ht 157.5 cm; Wt 70.8 kg
[2020-01-30 16:10] VITALS: BP 134/92
== END 2020-01-30 16:10 | disposition home or self-care (01) ==
LOC: ED 15:06
DX: G89.29 Other chronic pain (principal); M54.5 Low back pain; I10 Essential (primary) hypertension; M19.90 Unspecified osteoarthritis, unspecified site; K21.9 Gastro-esophageal reflux disease without esophagitis; Z88.8 Allergy status to other drugs, medicaments and biological substances
CPT/HCPCS: J1885

== ENCOUNTER 2020-02-02 10:14 | Emergency (ER) | payer OTHER ==
[~2020-02-02] VITALS: Ht 160 cm; Wt 70.3 kg
[2020-02-02 10:16] VITALS: Ht 160 cm; Wt 70.3 kg
[2020-02-02 11:41] VITALS: BP 156/88
== END 2020-02-02 11:04 | disposition home or self-care (01) ==
LOC: ED 10:14
DX: K59.00 Constipation, unspecified (principal); K29.70 Gastritis, unspecified, without bleeding; M46.90 Unspecified inflammatory spondylopathy, site unspecified; Z88.8 Allergy status to other drugs, medicaments and biological substances
CPT/HCPCS: Q0092

== ENCOUNTER 2020-02-03 12:24 | Observation (INO) | payer OTHER ==
[~2020-02-03] VITALS: Ht 157.5 cm; Wt 70.3 kg
[2020-02-03 12:30] VITALS: Ht 157.5 cm; Wt 70.3 kg
[2020-02-03 12:54] LABS: BASOPHIL % 1.2 % (0-2); PLATELET COUNT 269 x10^3mcL (130-400)
[2020-02-03 12:56] LABS: RED CELL DISTRIBUTION WIDTH 15.1 % (11.5-14.5)
[2020-02-03 13:17] LABS: ALBUMIN 3.4 g/dL (3.4-5.0); ALKALINE PHOSPHATASE 85 U/L (46-116); AST/SGOT 16 U/L (15-37); CREATININE SERUM 1.2 mg/dL (0.6-1.0); SODIUM SERUM 142 mmol/L (136-145); TOTAL PROTEIN, SERUM 6.8 g/dL (6.4-8.2)
[2020-02-03 13:29] LABS: CALCIUM 8.7 mg/dL (8.5-10.1); CARBON DIOXIDE 29.8 mmol/L (21-32); CHLORIDE SERUM 105 mmol/L (98-107); GLUCOSE SERUM 131 mg/dL (74-106); POTASSIUM SERUM 4.2 mmol/L (3.5-5.1)
[2020-02-03 13:33] LABS: ALT/SGPT 16 U/L (14-59); AMYLASE 55 U/L (25-115); BILIRUBIN TOTAL 0.12 mg/dL (0.20-1.00); LIPASE 109 IU/L (73-393)
[2020-02-03 18:37] VITALS: BP 152/89
[2020-02-03 20:00] VITALS: BP 150/83
[2020-02-04 05:44] VITALS: BP 113/68
[2020-02-04 06:40] LABS: BASOPHIL % 0.4 % (0-2); PLATELET COUNT 255 x10^3mcL (130-400)
[2020-02-04 06:47] LABS: CALCIUM 8.5 mg/dL (8.5-10.1); CARBON DIOXIDE 29.8 mmol/L (21-32); CHLORIDE SERUM 108 mmol/L (98-107); GLUCOSE SERUM 87 mg/dL (74-106); POTASSIUM SERUM 3.9 mmol/L (3.5-5.1); SODIUM SERUM 145 mmol/L (136-145)
[2020-02-04 06:48] LABS: RED CELL DISTRIBUTION WIDTH 14.7 % (11.5-14.5)
[2020-02-04 08:05] VITALS: BP 127/74
[2020-02-04] MEDS ORDERED: EFFEXOR XR150 MG PO (09:11)
[2020-02-04] MEDS ORDERED: PERCOCET1 TA5 PO (09:20)
[2020-02-04 13:39] VITALS: BP 127/74
[2020-02-04 16:51] VITALS: BP 154/79
== END 2020-02-04 18:05 | disposition home or self-care (01) ==
LOC: ED 12:24 → MU 14:54
PROVIDERS: Emergency Medicine; ADMIT Hospitalist
DX: K56.41 Fecal impaction (principal); I10 Essential (primary) hypertension; F32.9 Major depressive disorder, single episode, unspecified
CPT/HCPCS: G0378; J1885; J2405; J7030

== ENCOUNTER 2020-03-03 10:40 | Emergency (ER) | payer OTHER ==
[~2020-03-03] VITALS: Ht 160 cm; Wt 70.3 kg
[~2020-03-03 10:40] MED LIST changes: +EFFEXOR XR150 MG PO; +PERCOCET1 TA5 PO
[2020-03-03 10:42] VITALS: Ht 160 cm; Wt 70.3 kg
[2020-03-03 12:29] VITALS: BP 148/75
== END 2020-03-03 12:29 | disposition home or self-care (01) ==
LOC: ED 10:40
DX: R10.816 Epigastric abdominal tenderness (principal); R11.10 Vomiting, unspecified; G89.29 Other chronic pain; M54.9 Dorsalgia, unspecified; I10 Essential (primary) hypertension; Z88.6 Allergy status to analgesic agent
CPT/HCPCS: J2270

== ENCOUNTER 2020-03-03 16:07 | Emergency (ER) | payer OTHER ==
[~2020-03-03] VITALS: Ht 160 cm; Wt 70.3 kg
[2020-03-03 16:22] VITALS: Ht 160 cm; Wt 70.3 kg
[2020-03-03 17:23] LABS: CALCIUM 8.7 mg/dL (8.5-10.1); CARBON DIOXIDE 27.3 mmol/L (21-32); CHLORIDE SERUM 104 mmol/L (98-107); CREATININE SERUM 1.4 mg/dL (0.6-1.0); GLUCOSE SERUM 117 mg/dL (74-106); POTASSIUM SERUM 3.7 mmol/L (3.5-5.1); SODIUM SERUM 142 mmol/L (136-145)
[2020-03-03 17:27] LABS: ALBUMIN 3.5 g/dL (3.4-5.0); ALKALINE PHOSPHATASE 87 U/L (46-116); ALT/SGPT 14 U/L (14-59); AST/SGOT 14 U/L (15-37); BASOPHIL % 0.8 % (0-2); BILIRUBIN TOTAL 0.3 mg/dL (0.20-1.00); LIPASE 104 IU/L (73-393); PLATELET COUNT 319 x10^3mcL (130-400); RED CELL DISTRIBUTION WIDTH 13.6 % (11.5-14.5); TOTAL PROTEIN, SERUM 6.7 g/dL (6.4-8.2)
[2020-03-03 20:09] VITALS: BP 161/87
== END 2020-03-03 20:10 | disposition home or self-care (01) ==
LOC: ED 16:07
PROVIDERS: Emergency Medicine
DX: K29.70 Gastritis, unspecified, without bleeding (principal); G89.29 Other chronic pain; I10 Essential (primary) hypertension; K21.9 Gastro-esophageal reflux disease without esophagitis; Z88.6 Allergy status to analgesic agent
CPT/HCPCS: 36415; J2270; Q0162

== ENCOUNTER 2020-03-04 17:25 | Emergency (ER) | payer OTHER ==
[~2020-03-04] VITALS: Ht 152.4 cm; Wt 68.0 kg
[2020-03-04 17:43] VITALS: Ht 152.4 cm; Wt 68.0 kg
[2020-03-04 18:53] VITALS: BP 145/95
== END 2020-03-04 18:53 | disposition home or self-care (01) ==
LOC: ED 17:25
DX: M54.9 Dorsalgia, unspecified (principal); G89.29 Other chronic pain; R11.10 Vomiting, unspecified; I10 Essential (primary) hypertension; M46.90 Unspecified inflammatory spondylopathy, site unspecified; K21.9 Gastro-esophageal reflux disease without esophagitis; Z88.8 Allergy status to other drugs, medicaments and biological substances
CPT/HCPCS: Q0162

== ENCOUNTER 2020-03-05 14:24 | Emergency (ER) | payer OTHER ==
[~2020-03-05] VITALS: Ht 160 cm; Wt 70.3 kg
[2020-03-05 14:30] VITALS: Ht 160 cm; Wt 70.3 kg
[2020-03-05 17:26] VITALS: BP 150/76
== END 2020-03-05 16:00 | disposition home or self-care (01) ==
LOC: ED 14:24
DX: R10.9 Unspecified abdominal pain (principal); F41.9 Anxiety disorder, unspecified; R11.2 Nausea with vomiting, unspecified; I10 Essential (primary) hypertension; K21.9 Gastro-esophageal reflux disease without esophagitis
CPT/HCPCS: J2405

== ENCOUNTER 2020-03-07 11:36 | Inpatient (IN) | payer OTHER ==
[~2020-03-07] VITALS: Ht 160 cm; Wt 69.2 kg
[2020-03-07 11:47] VITALS: Ht 160 cm; Wt 69.2 kg
[2020-03-07 12:56] LABS: CALCIUM 9.1 mg/dL (8.5-10.1); CARBON DIOXIDE 29.7 mmol/L (21-32); CHLORIDE SERUM 105 mmol/L (98-107); CREATININE SERUM 1.5 mg/dL (0.6-1.0); GLUCOSE SERUM 96 mg/dL (74-106); POTASSIUM SERUM 3.6 mmol/L (3.5-5.1); SODIUM SERUM 143 mmol/L (136-145)
[2020-03-07 13:00] LABS: ALKALINE PHOSPHATASE 99 U/L (46-116); ALT/SGPT 21 U/L (14-59); AST/SGOT 18 U/L (15-37); BILIRUBIN TOTAL 0.3 mg/dL (0.20-1.00); TOTAL PROTEIN, SERUM 8.2 g/dL (6.4-8.2)
[2020-03-07 14:05] LABS: BASOPHIL % 0.8 % (0-2); PLATELET COUNT 332 x10^3mcL (130-400); RED CELL DISTRIBUTION WIDTH 14.6 % (11.5-14.5)
[2020-03-07] MEDS ORDERED: ATIVAN1 MG PO (21:24)
[2020-03-07] MEDS ORDERED: HORIZANT300 MG PO (21:26)
[2020-03-07] MEDS ORDERED: TAGAMET HB200 M1 PO (21:26)
[2020-03-07 22:13] VITALS: BP 140/102
[2020-03-08 04:10] LABS: UA SPECIFIC GRAVITY 1.025 (1.005-1.035); microscopic required? YES; urine erythrocyte TRACE (NEGATIVE)
[2020-03-08 06:05] VITALS: BP 147/81
[2020-03-08 06:43] LABS: BASOPHIL % 0.8 % (0-2); PLATELET COUNT 306 x10^3mcL (130-400); RED CELL DISTRIBUTION WIDTH 14.3 % (11.5-14.5)
[2020-03-08 06:47] LABS: CALCIUM 8.8 mg/dL (8.5-10.1); CARBON DIOXIDE 27.8 mmol/L (21-32); CHLORIDE SERUM 105 mmol/L (98-107); CREATININE SERUM 1.4 mg/dL (0.6-1.0); GLUCOSE SERUM 85 mg/dL (74-106); MAGNESIUM 2.4 mg/dL (1.8-2.4); POTASSIUM SERUM 3.9 mmol/L (3.5-5.1); SODIUM SERUM 141 mmol/L (136-145)
[2020-03-08 08:11] VITALS: BP 151/83
[2020-03-08 12:04] VITALS: BP 136/80
[2020-03-08 18:21] VITALS: BP 120/87
[2020-03-08 20:33] VITALS: BP 169/76
[2020-03-09 05:44] VITALS: BP 167/86
[2020-03-09 07:17] LABS: BASOPHIL % 0.7 % (0-2); PLATELET COUNT 291 x10^3mcL (130-400); RED CELL DISTRIBUTION WIDTH 14.4 % (11.5-14.5)
[2020-03-09 07:27] LABS: ALBUMIN 3.5 g/dL (3.4-5.0); ALKALINE PHOSPHATASE 85 U/L (46-116); ALT/SGPT 16 U/L (14-59); AST/SGOT 16 U/L (15-37); BILIRUBIN TOTAL 0.3 mg/dL (0.20-1.00); CALCIUM 8.7 mg/dL (8.5-10.1); CARBON DIOXIDE 27.1 mmol/L (21-32); CHLORIDE SERUM 106 mmol/L (98-107); CREATININE SERUM 1.2 mg/dL (0.6-1.0); GLUCOSE SERUM 81 mg/dL (74-106); MAGNESIUM 2.2 mg/dL (1.8-2.4); POTASSIUM SERUM 4.1 mmol/L (3.5-5.1); SODIUM SERUM 143 mmol/L (136-145); TOTAL PROTEIN, SERUM 7.2 g/dL (6.4-8.2)
[2020-03-09 11:57] VITALS: BP 168/88
[2020-03-09 16:20] VITALS: BP 124/64
[2020-03-09 20:33] VITALS: BP 146/76
[2020-03-10 06:13] VITALS: BP 164/100
[2020-03-10 06:57] LABS: BASOPHIL % 0.7 % (0-2); PLATELET COUNT 302 x10^3mcL (130-400); RED CELL DISTRIBUTION WIDTH 14.4 % (11.5-14.5)
[2020-03-10 07:27] LABS: ALBUMIN 3.5 g/dL (3.4-5.0); ALKALINE PHOSPHATASE 83 U/L (46-116); ALT/SGPT 15 U/L (14-59); AST/SGOT 16 U/L (15-37); BILIRUBIN TOTAL 0.2 mg/dL (0.20-1.00); CALCIUM 8.7 mg/dL (8.5-10.1); CARBON DIOXIDE 24.7 mmol/L (21-32); CHLORIDE SERUM 104 mmol/L (98-107); CREATININE SERUM 1.1 mg/dL (0.6-1.0); GLUCOSE SERUM 95 mg/dL (74-106); POTASSIUM SERUM 3.8 mmol/L (3.5-5.1); SODIUM SERUM 139 mmol/L (136-145); TOTAL PROTEIN, SERUM 7.2 g/dL (6.4-8.2)
[2020-03-10 08:20] VITALS: BP 164/105
[2020-03-10 14:48] VITALS: BP 153/83
[2020-03-10 17:48] VITALS: BP 147/60
[2020-03-10 21:14] VITALS: BP 153/73
[2020-03-11 05:58] VITALS: BP 149/77
[2020-03-11 07:16] LABS: BASOPHIL % 0.7 % (0-2); PLATELET COUNT 270 x10^3mcL (130-400); RED CELL DISTRIBUTION WIDTH 14.4 % (11.5-14.5)
[2020-03-11 07:43] LABS: ALKALINE PHOSPHATASE 73 U/L (46-116); ALT/SGPT 14 U/L (14-59); AST/SGOT 9 U/L (15-37); BILIRUBIN TOTAL 0.16 mg/dL (0.20-1.00); CALCIUM 8.3 mg/dL (8.5-10.1); CARBON DIOXIDE 26.7 mmol/L (21-32); CHLORIDE SERUM 106 mmol/L (98-107); GLUCOSE SERUM 80 mg/dL (74-106); MAGNESIUM 2.1 mg/dL (1.8-2.4); POTASSIUM SERUM 3.9 mmol/L (3.5-5.1); SODIUM SERUM 140 mmol/L (136-145); TOTAL PROTEIN, SERUM 6.2 g/dL (6.4-8.2)
[2020-03-11 07:44] LABS: ALBUMIN 3.1 g/dL (3.4-5.0)
[2020-03-11 08:30] VITALS: BP 158/86
[2020-03-11] MEDS ORDERED: BAY PO (10:41)
[2020-03-11] MEDS ORDERED: ATORVASTATIN CA40 M1 PO (10:41)
[2020-03-11 10:54] VITALS: BP 158/86
== END 2020-03-11 13:27 | disposition home health service (06) | DRG 65 ==
LOC: ED 11:36 → DU 15:44
PROVIDERS: Emergency Medicine; ADMIT Hospitalist; ATTEND Hospitalist
DX: I63.9 Cerebral infarction, unspecified (principal); N39.0 Urinary tract infection, site not specified; I10 Essential (primary) hypertension; M46.90 Unspecified inflammatory spondylopathy, site unspecified; F32.9 Major depressive disorder, single episode, unspecified; K21.9 Gastro-esophageal reflux disease without esophagitis; F41.9 Anxiety disorder, unspecified; Z82.49 Family history of ischemic heart disease and other diseases of the circulatory system; Z81.8 Family history of other mental and behavioral disorders; N28.9 Disorder of kidney and ureter, unspecified; Z88.8 Allergy status to other drugs, medicaments and biological substances
CPT/HCPCS: 97112-GP; 97116-GP; 97530-GP; G0378; J0696; J2405; J7030; Q0092; Q9967

== ENCOUNTER 2020-03-13 15:41 | Emergency (ER) | payer OTHER ==
[~2020-03-13] VITALS: Ht 160 cm; Wt 74.8 kg
[~2020-03-13 15:41] MED LIST changes: +ATIVAN1 MG PO; +BAY PO; +HORIZANT300 MG PO; +TAGAMET HB200 M1 PO
[2020-03-13 15:44] VITALS: Ht 160 cm; Wt 74.8 kg
[2020-03-13 16:50] LABS: BASOPHIL % 2.3 % (0-2); PLATELET COUNT 289 x10^3mcL (130-400); RED CELL DISTRIBUTION WIDTH 14.7 % (11.5-14.5)
[2020-03-13 16:53] LABS: CALCIUM 8.8 mg/dL (8.5-10.1); CARBON DIOXIDE 29.2 mmol/L (21-32); CHLORIDE SERUM 104 mmol/L (98-107); CREATININE SERUM 1.2 mg/dL (0.6-1.0); GLUCOSE SERUM 97 mg/dL (74-106); POTASSIUM SERUM 4.3 mmol/L (3.5-5.1); SODIUM SERUM 141 mmol/L (136-145)
[2020-03-13 16:57] LABS: ALBUMIN 3.6 g/dL (3.4-5.0); ALKALINE PHOSPHATASE 84 U/L (46-116); ALT/SGPT 16 U/L (14-59); AST/SGOT 16 U/L (15-37); BILIRUBIN TOTAL 0.2 mg/dL (0.20-1.00); LIPASE 173 IU/L (73-393); TOTAL PROTEIN, SERUM 7.1 g/dL (6.4-8.2)
[2020-03-13 19:18] VITALS: BP 165/81
== END 2020-03-13 19:17 | disposition home or self-care (01) ==
LOC: ED 15:41
PROVIDERS: Emergency Medicine
DX: R10.13 Epigastric pain (principal); I10 Essential (primary) hypertension; K21.9 Gastro-esophageal reflux disease without esophagitis; K59.00 Constipation, unspecified; Z88.8 Allergy status to other drugs, medicaments and biological substances
CPT/HCPCS: J1885; J2405; J7030

== ENCOUNTER 2020-03-15 20:42 | Emergency (ER) | payer OTHER ==
[~2020-03-15] VITALS: Ht 165.1 cm; Wt 72.6 kg
[2020-03-15 20:48] VITALS: Ht 165.1 cm; Wt 72.6 kg
[2020-03-16 00:31] VITALS: BP 137/72
== END 2020-03-16 00:31 | disposition home or self-care (01) ==
LOC: ED 20:42
DX: M46.94 Unspecified inflammatory spondylopathy, thoracic region (principal); I10 Essential (primary) hypertension; K21.9 Gastro-esophageal reflux disease without esophagitis; Z98.890 Other specified postprocedural states; Z88.8 Allergy status to other drugs, medicaments and biological substances
CPT/HCPCS: 72072; J2270; Q0092; Q0162

== ENCOUNTER 2020-03-16 12:33 | Emergency (ER) | payer OTHER ==
[~2020-03-16] VITALS: Ht 160 cm; Wt 68.0 kg
[2020-03-16 13:11] VITALS: Ht 160 cm; Wt 68.0 kg
[2020-03-16 14:37] LABS: BASOPHIL % 0.8 % (0-2); PLATELET COUNT 304 x10^3mcL (130-400)
[2020-03-16 14:39] LABS: RED CELL DISTRIBUTION WIDTH 15.1 % (11.5-14.5)
[2020-03-16 14:50] LABS: CARBON DIOXIDE 30.1 mmol/L (21-32); CHLORIDE SERUM 102 mmol/L (98-107); CREATININE SERUM 1.2 mg/dL (0.6-1.0); GLUCOSE SERUM 111 mg/dL (74-106); POTASSIUM SERUM 3.7 mmol/L (3.5-5.1); SODIUM SERUM 140 mmol/L (136-145)
[2020-03-16 14:55] LABS: ALBUMIN 4.1 g/dL (3.4-5.0); ALKALINE PHOSPHATASE 104 U/L (46-116); ALT/SGPT 24 U/L (14-59); AST/SGOT 23 U/L (15-37); BILIRUBIN TOTAL 0.4 mg/dL (0.20-1.00); LIPASE 104 IU/L (73-393)
[2020-03-16 19:10] VITALS: BP 157/62
== END 2020-03-16 19:10 | disposition home or self-care (01) ==
LOC: ED 12:33
PROVIDERS: Emergency Medicine
DX: R10.816 Epigastric abdominal tenderness (principal); R11.0 Nausea; I10 Essential (primary) hypertension; K21.9 Gastro-esophageal reflux disease without esophagitis; Z88.8 Allergy status to other drugs, medicaments and biological substances
CPT/HCPCS: J1885

== ENCOUNTER 2020-03-25 14:53 | Emergency (ER) | payer OTHER ==
[~2020-03-25] VITALS: Ht 160 cm; Wt 68.0 kg
[2020-03-25 14:59] VITALS: Ht 160 cm; Wt 68.0 kg
[2020-03-25 17:33] VITALS: BP 151/100
== END 2020-03-25 17:33 | disposition home or self-care (01) ==
LOC: ED 14:53
DX: K59.00 Constipation, unspecified (principal); I10 Essential (primary) hypertension; M19.90 Unspecified osteoarthritis, unspecified site; K21.9 Gastro-esophageal reflux disease without esophagitis; Z88.6 Allergy status to analgesic agent
CPT/HCPCS: 72072; J1885; J3010

== ENCOUNTER 2020-03-26 09:19 | Emergency (ER) | payer OTHER ==
[~2020-03-26] VITALS: Ht 160 cm; Wt 68.0 kg
[2020-03-26 09:33] VITALS: Ht 160 cm; Wt 68.0 kg
[2020-03-26 09:51] LABS: BASOPHIL % 0.8 % (0-2); PLATELET COUNT 289 x10^3mcL (130-400); RED CELL DISTRIBUTION WIDTH 14.9 % (11.5-14.5)
[2020-03-26 10:54] LABS: ALBUMIN 3.9 g/dL (3.4-5.0); ALKALINE PHOSPHATASE 93 U/L (46-116); ALT/SGPT 21 U/L (14-59); AST/SGOT 17 U/L (15-37); BILIRUBIN TOTAL 0.56 mg/dL (0.20-1.00); CALCIUM 9.4 mg/dL (8.5-10.1); CARBON DIOXIDE 26.6 mmol/L (21-32); CHLORIDE SERUM 105 mmol/L (98-107); CHOLESTEROL 180 mg/dL (<200); CREATININE SERUM 1.4 mg/dL (0.6-1.0); GLUCOSE SERUM 117 mg/dL (74-106); LIPASE 96 IU/L (73-393); POTASSIUM SERUM 3.7 mmol/L (3.5-5.1); SODIUM SERUM 141 mmol/L (136-145); TOTAL PROTEIN, SERUM 7.3 g/dL (6.4-8.2); TRIGLYCERIDES 113 mg/dL (<150)
[2020-03-26 10:55] LABS: CHOLESTEROL/HDL RATIO 2.8; HDL CHOLESTEROL 65 mg/dL (40-60)
[2020-03-26 12:40] VITALS: BP 175/91
[2020-03-26 12:57] LABS: microscopic required? YES; urine erythrocyte NEGATIVE (NEGATIVE)
[2020-03-27 22:31] LABS: FREE T4 0.99 ng/dL (0.76-1.46); FREE THYROXINE INDEX 2.6 ug/dL (1.4-4.5); T4(THYROXINE) 7.3 ug/dL (4.7-13.3)
[2020-03-28 10:03] LABS: T3 TOTAL 0.99 ng/mL
== END 2020-03-26 12:40 | disposition home or self-care (01) ==
LOC: ED 09:19
PROVIDERS: Specialist
DX: G89.29 Other chronic pain (principal); R10.816 Epigastric abdominal tenderness; R10.12 Left upper quadrant pain; I10 Essential (primary) hypertension; M19.90 Unspecified osteoarthritis, unspecified site; K21.9 Gastro-esophageal reflux disease without esophagitis; Z88.8 Allergy status to other drugs, medicaments and biological substances
CPT/HCPCS: 83880; 84439; J3490; Q0092

== ENCOUNTER 2020-03-31 09:29 | Emergency (ER) | payer OTHER ==
[~2020-03-31] VITALS: Ht 160 cm; Wt 68.0 kg
[2020-03-31 09:34] VITALS: Ht 160 cm; Wt 68.0 kg
[2020-03-31 10:50] LABS: BASOPHIL % 0.7 % (0-2); PLATELET COUNT 266 x10^3mcL (130-400)
[2020-03-31 11:08] LABS: RED CELL DISTRIBUTION WIDTH 15.3 % (11.5-14.5)
[2020-03-31 11:24] LABS: CALCIUM 8.9 mg/dL (8.5-10.1); CARBON DIOXIDE 28.7 mmol/L (21-32); CHLORIDE SERUM 107 mmol/L (98-107); CREATININE SERUM 1.2 mg/dL (0.6-1.0); GLUCOSE SERUM 102 mg/dL (74-106); POTASSIUM SERUM 3.9 mmol/L (3.5-5.1); SODIUM SERUM 142 mmol/L (136-145)
[2020-03-31 11:28] LABS: ALBUMIN 3.7 g/dL (3.4-5.0); ALKALINE PHOSPHATASE 87 U/L (46-116); ALT/SGPT 19 U/L (14-59); AST/SGOT 12 U/L (15-37); BILIRUBIN TOTAL 0.35 mg/dL (0.20-1.00); LIPASE 124 IU/L (73-393); TOTAL PROTEIN, SERUM 7.2 g/dL (6.4-8.2)
[2020-03-31 12:23] VITALS: BP 164/78
== END 2020-03-31 12:23 | disposition home or self-care (01) ==
LOC: ED 09:29
PROVIDERS: Emergency Medicine
DX: R10.13 Epigastric pain (principal); I10 Essential (primary) hypertension; K21.9 Gastro-esophageal reflux disease without esophagitis; M46.90 Unspecified inflammatory spondylopathy, site unspecified; Z98.890 Other specified postprocedural states; Z88.8 Allergy status to other drugs, medicaments and biological substances
CPT/HCPCS: 36415; Q0092

== ENCOUNTER 2020-04-02 13:21 | Emergency (ER) | payer OTHER ==
[~2020-04-02] VITALS: Ht 160 cm; Wt 68.0 kg
[2020-04-02 13:27] VITALS: Ht 160 cm; Wt 68.0 kg
[2020-04-02 15:22] VITALS: BP 133/88
== END 2020-04-02 16:28 | disposition home or self-care (01) ==
LOC: ED 13:21
DX: S32.009A Unspecified fracture of unspecified lumbar vertebra, initial encounter for closed fracture (principal); S22.009A Unspecified fracture of unspecified thoracic vertebra, initial encounter for closed fracture; I10 Essential (primary) hypertension; F32.9 Major depressive disorder, single episode, unspecified; R10.9 Unspecified abdominal pain; G89.29 Other chronic pain; M19.90 Unspecified osteoarthritis, unspecified site; K21.9 Gastro-esophageal reflux disease without esophagitis; Z88.8 Allergy status to other drugs, medicaments and biological substances; X58.XXXA Exposure to other specified factors, initial encounter; Y93.89 Activity, other specified; Y92.89 Other specified places as the place of occurrence of the external cause; Y99.8 Other external cause status
CPT/HCPCS: J1885

== ENCOUNTER 2020-04-03 07:38 | Emergency (ER) | payer OTHER ==
[~2020-04-03] VITALS: Ht 162.6 cm; Wt 70.3 kg
[2020-04-03 07:45] VITALS: Ht 162.6 cm; Wt 70.3 kg
[2020-04-03 09:00] LABS: ALBUMIN 3.6 g/dL (3.4-5.0); ALKALINE PHOSPHATASE 77 U/L (46-116); ALT/SGPT 16 U/L (14-59); AST/SGOT 17 U/L (15-37); BILIRUBIN TOTAL 0.4 mg/dL (0.20-1.00); CARBON DIOXIDE 29.4 mmol/L (21-32); CHLORIDE SERUM 105 mmol/L (98-107); CREATININE SERUM 1.5 mg/dL (0.6-1.0); GLUCOSE SERUM 121 mg/dL (74-106); LIPASE 111 IU/L (73-393); POTASSIUM SERUM 4.2 mmol/L (3.5-5.1); SODIUM SERUM 142 mmol/L (136-145)
[2020-04-03 10:15] LABS: CALCIUM 8.8 mg/dL (8.5-10.1)
[2020-04-03 10:47] LABS: BASOPHIL % 0.6 % (0-2); PLATELET COUNT 265 x10^3mcL (130-400); RED CELL DISTRIBUTION WIDTH 14.9 % (11.5-14.5)
[2020-04-03 11:57] VITALS: BP 156/81
== END 2020-04-03 11:57 | disposition home or self-care (01) ==
LOC: ED 07:38
PROVIDERS: Emergency Medicine
DX: R10.13 Epigastric pain (principal); M19.90 Unspecified osteoarthritis, unspecified site; K21.9 Gastro-esophageal reflux disease without esophagitis; I10 Essential (primary) hypertension; Z88.8 Allergy status to other drugs, medicaments and biological substances
CPT/HCPCS: J2270; J2405; J7030

== ENCOUNTER 2020-04-03 21:02 | Emergency (ER) | payer OTHER ==
[~2020-04-03] VITALS: Ht 157.5 cm; Wt 77.1 kg
[2020-04-03 21:04] VITALS: Ht 157.5 cm; Wt 77.1 kg
[2020-04-03 22:25] LABS: BASOPHIL % 1.8 % (0-2); PLATELET COUNT 278 x10^3mcL (130-400)
[2020-04-03 22:44] LABS: CALCIUM 8.6 mg/dL (8.5-10.1); CARBON DIOXIDE 27.7 mmol/L (21-32); CHLORIDE SERUM 106 mmol/L (98-107); CREATININE SERUM 1.4 mg/dL (0.6-1.0); GLUCOSE SERUM 113 mg/dL (74-106); POTASSIUM SERUM 3.6 mmol/L (3.5-5.1); SODIUM SERUM 142 mmol/L (136-145)
[2020-04-03 22:48] LABS: ALBUMIN 3.7 g/dL (3.4-5.0); ALKALINE PHOSPHATASE 76 U/L (46-116); ALT/SGPT 17 U/L (14-59); AMYLASE 39 U/L (25-115); AST/SGOT 18 U/L (15-37); BILIRUBIN TOTAL 0.4 mg/dL (0.20-1.00); LIPASE 88 IU/L (73-393); TOTAL PROTEIN, SERUM 7.1 g/dL (6.4-8.2)
[2020-04-04 00:37] VITALS: BP 141/78
== END 2020-04-04 00:37 | disposition home or self-care (01) ==
LOC: ED 21:02
DX: K29.70 Gastritis, unspecified, without bleeding (principal); K21.9 Gastro-esophageal reflux disease without esophagitis; I10 Essential (primary) hypertension; M19.90 Unspecified osteoarthritis, unspecified site; Z88.8 Allergy status to other drugs, medicaments and biological substances
CPT/HCPCS: J2270; Q0162

== ENCOUNTER 2020-04-04 13:27 | Emergency (ER) | payer OTHER ==
[~2020-04-04] VITALS: Ht 160 cm; Wt 69.4 kg
[2020-04-04 14:42] VITALS: BP 158/81; Ht 160 cm; Wt 69.4 kg
== END 2020-04-04 18:41 | disposition home or self-care (01) ==
LOC: ED 13:27
DX: S32.019A Unspecified fracture of first lumbar vertebra, initial encounter for closed fracture (principal); S32.029A Unspecified fracture of second lumbar vertebra, initial encounter for closed fracture; S32.039A Unspecified fracture of third lumbar vertebra, initial encounter for closed fracture; S32.049A Unspecified fracture of fourth lumbar vertebra, initial encounter for closed fracture; S32.059A Unspecified fracture of fifth lumbar vertebra, initial encounter for closed fracture; S22.009A Unspecified fracture of unspecified thoracic vertebra, initial encounter for closed fracture; M54.16 Radiculopathy, lumbar region; M54.14 Radiculopathy, thoracic region; F32.9 Major depressive disorder, single episode, unspecified; I10 Essential (primary) hypertension; K21.9 Gastro-esophageal reflux disease without esophagitis; X58.XXXA Exposure to other specified factors, initial encounter; Y93.89 Activity, other specified; Y92.89 Other specified places as the place of occurrence of the external cause; Y99.8 Other external cause status
CPT/HCPCS: J1100; J1885

== ENCOUNTER 2020-04-11 16:24 | Emergency (ER) | payer OTHER ==
[~2020-04-11] VITALS: Ht 165.1 cm; Wt 62.1 kg
[2020-04-11 17:00] VITALS: Ht 165.1 cm; Wt 62.1 kg
[2020-04-11 21:54] VITALS: BP 150/91
== END 2020-04-11 21:54 | disposition home or self-care (01) ==
LOC: ED 16:24
DX: R10.13 Epigastric pain (principal); R11.0 Nausea; M54.9 Dorsalgia, unspecified; I10 Essential (primary) hypertension; K21.9 Gastro-esophageal reflux disease without esophagitis; Z88.8 Allergy status to other drugs, medicaments and biological substances
CPT/HCPCS: Q0162

== ENCOUNTER 2020-04-21 10:14 | Emergency (ER) | payer OTHER ==
[~2020-04-21] VITALS: Ht 160 cm; Wt 68.0 kg
[2020-04-21 10:39] VITALS: Ht 160 cm; Wt 68.0 kg
[2020-04-21 13:16] VITALS: BP 156/78
== END 2020-04-21 13:16 | disposition home or self-care (01) ==
LOC: ED 10:14
DX: R10.13 Epigastric pain (principal); G89.29 Other chronic pain; R11.10 Vomiting, unspecified; I10 Essential (primary) hypertension; K21.9 Gastro-esophageal reflux disease without esophagitis; M47.9 Spondylosis, unspecified; M46.90 Unspecified inflammatory spondylopathy, site unspecified; Z88.8 Allergy status to other drugs, medicaments and biological substances
CPT/HCPCS: Q0162

== ENCOUNTER 2020-04-25 11:08 | Emergency (ER) | payer OTHER ==
[~2020-04-25] VITALS: Ht 160 cm; Wt 65.8 kg
[2020-04-25 11:26] VITALS: Ht 160 cm; Wt 65.8 kg
[2020-04-25 13:39] VITALS: BP 158/79
== END 2020-04-25 13:39 | disposition home or self-care (01) ==
LOC: ED 11:08
DX: G89.29 Other chronic pain (principal); R10.13 Epigastric pain; I10 Essential (primary) hypertension; K21.9 Gastro-esophageal reflux disease without esophagitis; Z88.8 Allergy status to other drugs, medicaments and biological substances

== ENCOUNTER 2020-04-26 10:03 | Emergency (ER) | payer OTHER ==
[~2020-04-26] VITALS: Ht 160 cm; Wt 65.8 kg
[2020-04-26 10:10] VITALS: Ht 160 cm; Wt 65.8 kg
[2020-04-26 11:50] VITALS: BP 123/90
== END 2020-04-26 11:50 | disposition home or self-care (01) ==
LOC: ED 10:03
DX: K59.00 Constipation, unspecified (principal); G89.29 Other chronic pain; R10.30 Lower abdominal pain, unspecified; I10 Essential (primary) hypertension; K21.9 Gastro-esophageal reflux disease without esophagitis; Z88.8 Allergy status to other drugs, medicaments and biological substances

== ENCOUNTER 2020-05-04 09:09 | Emergency (ER) | payer OTHER ==
[~2020-05-04] VITALS: Ht 160 cm; Wt 65.8 kg
[2020-05-04 09:32] VITALS: Ht 160 cm; Wt 65.8 kg
[2020-05-04 12:06] VITALS: BP 158/88
== END 2020-05-04 12:06 | disposition home or self-care (01) ==
LOC: ED 09:09
DX: M54.5 Low back pain (principal); I10 Essential (primary) hypertension; K21.9 Gastro-esophageal reflux disease without esophagitis; Z88.6 Allergy status to analgesic agent
CPT/HCPCS: J1885

== ENCOUNTER 2020-05-05 08:43 | Emergency (ER) | payer OTHER ==
[~2020-05-05] VITALS: Ht 160 cm; Wt 65.8 kg
[2020-05-05 08:48] VITALS: Ht 160 cm; Wt 65.8 kg
[2020-05-05 10:59] VITALS: BP 148/66
== END 2020-05-05 10:59 | disposition home or self-care (01) ==
LOC: ED 08:43
DX: M54.9 Dorsalgia, unspecified (principal); G89.29 Other chronic pain; R10.9 Unspecified abdominal pain; R07.89 Other chest pain; I10 Essential (primary) hypertension; M46.90 Unspecified inflammatory spondylopathy, site unspecified; K21.9 Gastro-esophageal reflux disease without esophagitis; Z88.8 Allergy status to other drugs, medicaments and biological substances
CPT/HCPCS: 72072

== ENCOUNTER 2020-05-07 17:17 | Emergency (ER) | payer OTHER ==
[~2020-05-07] VITALS: Ht 170.2 cm; Wt 72.6 kg
[2020-05-07 17:30] VITALS: Ht 170.2 cm; Wt 72.6 kg
[2020-05-07 18:29] LABS: BASOPHIL % 0.5 % (0-2); PLATELET COUNT 316 x10^3mcL (130-400); RED CELL DISTRIBUTION WIDTH 15.4 % (11.5-14.5)
[2020-05-07 18:36] LABS: CALCIUM 9.3 mg/dL (8.5-10.1); CARBON DIOXIDE 29.8 mmol/L (21-32); CHLORIDE SERUM 104 mmol/L (98-107); CREATININE SERUM 1.3 mg/dL (0.6-1.0); GLUCOSE SERUM 129 mg/dL (74-106); POTASSIUM SERUM 3.8 mmol/L (3.5-5.1); SODIUM SERUM 140 mmol/L (136-145)
[2020-05-07 18:41] LABS: ALBUMIN 3.8 g/dL (3.4-5.0); ALKALINE PHOSPHATASE 97 U/L (46-116); ALT/SGPT 20 U/L (14-59); AST/SGOT 34 U/L (15-37); LIPASE 71 IU/L (73-393); TOTAL PROTEIN, SERUM 7.7 g/dL (6.4-8.2)
[2020-05-08 03:45] VITALS: BP 146/85
== END 2020-05-08 03:45 | disposition home or self-care (01) ==
LOC: ED 17:17
PROVIDERS: Emergency Medicine
DX: R10.816 Epigastric abdominal tenderness (principal); K21.9 Gastro-esophageal reflux disease without esophagitis; I10 Essential (primary) hypertension; Z88.6 Allergy status to analgesic agent; Z88.8 Allergy status to other drugs, medicaments and biological substances
CPT/HCPCS: J1200; J2270; J2405; J7030

== ENCOUNTER 2020-05-09 07:47 | Emergency (ER) | payer OTHER, MEDICAID ==
[~2020-05-09] VITALS: Ht 160 cm; Wt 65.8 kg
[2020-05-09 10:16] VITALS: BP 124/72
== END 2020-05-09 10:16 | disposition home or self-care (01) ==
LOC: ED 07:47
DX: G89.29 Other chronic pain (principal); R10.13 Epigastric pain; M54.5 Low back pain; I10 Essential (primary) hypertension; K21.9 Gastro-esophageal reflux disease without esophagitis; Z88.6 Allergy status to analgesic agent

== ENCOUNTER 2020-06-17 11:29 | Emergency (ER) | payer OTHER, MEDICAID ==
[~2020-06-17] VITALS: Ht 160 cm; Wt 65.8 kg
[2020-06-17 11:40] VITALS: Ht 160 cm; Wt 65.8 kg
[2020-06-17 13:16] VITALS: BP 135/83
== END 2020-06-17 13:16 | disposition home or self-care (01) ==
LOC: ED 11:29
DX: R10.816 Epigastric abdominal tenderness (principal); G89.29 Other chronic pain; I10 Essential (primary) hypertension; K21.9 Gastro-esophageal reflux disease without esophagitis; Z88.6 Allergy status to analgesic agent; Z76.0 Encounter for issue of repeat prescription

== ENCOUNTER 2020-06-23 11:19 | Emergency (ER) | payer OTHER, MEDICAID ==
[~2020-06-23] VITALS: Ht 160 cm; Wt 65.8 kg
[2020-06-23 11:34] VITALS: Ht 160 cm; Wt 65.8 kg
[2020-06-23 12:34] LABS: CALCIUM 8.6 mg/dL (8.5-10.1); CARBON DIOXIDE 29.1 mmol/L (21-32); CHLORIDE SERUM 105 mmol/L (98-107); CREATININE SERUM 1.1 mg/dL (0.6-1.0); GLUCOSE SERUM 95 mg/dL (74-106); SODIUM SERUM 139 mmol/L (136-145)
[2020-06-23 12:36] LABS: BASOPHIL % 0.9 % (0-2); PLATELET COUNT 286 x10^3mcL (130-400)
[2020-06-23 12:38] LABS: ALKALINE PHOSPHATASE 79 U/L (46-116); ALT/SGPT 12 U/L (14-59); AMYLASE 54 U/L (25-115); AST/SGOT 15 U/L (15-37); BILIRUBIN TOTAL 0.2 mg/dL (0.20-1.00); LIPASE 119 IU/L (73-393); TOTAL PROTEIN, SERUM 6.5 g/dL (6.4-8.2)
[2020-06-23 12:39] LABS: RED CELL DISTRIBUTION WIDTH 15.5 % (11.5-14.5)
[2020-06-23 12:42] LABS: ALBUMIN 3.2 g/dL (3.4-5.0)
[2020-06-23 13:12] VITALS: BP 192/91
== END 2020-06-23 13:12 | disposition home or self-care (01) ==
LOC: ED 11:19
PROVIDERS: Emergency Medicine
DX: R10.13 Epigastric pain (principal); G89.29 Other chronic pain; I10 Essential (primary) hypertension
CPT/HCPCS: J1885

== ENCOUNTER 2020-06-24 08:15 | Emergency (ER) | payer OTHER, MEDICAID ==
[~2020-06-24] VITALS: Ht 160 cm; Wt 65.8 kg
[2020-06-24 08:18] VITALS: Ht 160 cm; Wt 65.8 kg
[2020-06-24 10:46] VITALS: BP 148/76
== END 2020-06-24 10:46 | disposition home or self-care (01) ==
LOC: ED 08:15
DX: M54.5 Low back pain (principal); I10 Essential (primary) hypertension
CPT/HCPCS: J1885; J2270; J2405

== ENCOUNTER 2020-06-25 08:46 | Emergency (ER) | payer OTHER, MEDICAID ==
[2020-06-25 11:24] VITALS: BP 118/60
== END 2020-06-25 11:24 | disposition home or self-care (01) ==
LOC: ED 08:46
DX: R10.13 Epigastric pain (principal); M54.5 Low back pain; G89.29 Other chronic pain; I10 Essential (primary) hypertension; K21.9 Gastro-esophageal reflux disease without esophagitis; Z88.8 Allergy status to other drugs, medicaments and biological substances; Z98.890 Other specified postprocedural states
CPT/HCPCS: J1885

== ENCOUNTER 2020-06-26 11:21 | Emergency (ER) | payer OTHER, MEDICAID ==
[~2020-06-26] VITALS: Ht 167.6 cm; Wt 68.0 kg
[2020-06-26 11:29] VITALS: Ht 167.6 cm; Wt 68.0 kg
[2020-06-26 13:26] LABS: BASOPHIL % 0.8 % (0-2); PLATELET COUNT 277 x10^3mcL (130-400)
[2020-06-26 13:33] LABS: RED CELL DISTRIBUTION WIDTH 15.2 % (11.5-14.5)
[2020-06-26 13:33] LABS: microscopic required? NO
[2020-06-26 13:54] LABS: ALBUMIN 3.5 g/dL (3.4-5.0); ALKALINE PHOSPHATASE 97 U/L (46-116); ALT/SGPT 15 U/L (14-59); AST/SGOT 20 U/L (15-37); CALCIUM 8.8 mg/dL (8.5-10.1); CARBON DIOXIDE 25.1 mmol/L (21-32); CHLORIDE SERUM 104 mmol/L (98-107); CREATININE SERUM 1.1 mg/dL (0.6-1.0); GLUCOSE SERUM 94 mg/dL (74-106); LIPASE 96 IU/L (73-393); POTASSIUM SERUM 4.4 mmol/L (3.5-5.1); SODIUM SERUM 140 mmol/L (136-145); TOTAL PROTEIN, SERUM 7.4 g/dL (6.4-8.2)
[2020-06-26 14:15] LABS: urine erythrocyte NEGATIVE (NEGATIVE)
[2020-06-26 15:11] VITALS: BP 151/88
[2020-06-27] MEDS ORDERED: [UNRECOGNIZED DRUG - OTHER] (05:28)
== END 2020-06-26 15:11 | disposition home or self-care (01) ==
LOC: ED 11:21
PROVIDERS: Emergency Medicine
DX: R10.13 Epigastric pain (principal); I10 Essential (primary) hypertension; M46.90 Unspecified inflammatory spondylopathy, site unspecified; K21.9 Gastro-esophageal reflux disease without esophagitis; Z88.8 Allergy status to other drugs, medicaments and biological substances
CPT/HCPCS: J1885; J2270; J2405

== ENCOUNTER 2020-06-27 02:16 | Observation (INO) | payer OTHER, MEDICAID ==
[~2020-06-27] VITALS: Ht 157.5 cm; Wt 67.7 kg
[2020-06-27 02:48] VITALS: Ht 157.5 cm; Wt 67.7 kg
[2020-06-27] MEDS ORDERED: [UNRECOGNIZED DRUG - OTHER] (05:28)
[2020-06-27 07:25] LABS: PLATELET COUNT 279 x10^3mcL (130-400); RED CELL DISTRIBUTION WIDTH 15.5 % (11.5-14.5)
[2020-06-27 07:45] LABS: CALCIUM 8.7 mg/dL (8.5-10.1); CARBON DIOXIDE 29.5 mmol/L (21-32); CHLORIDE SERUM 104 mmol/L (98-107); CREATININE SERUM 1.1 mg/dL (0.6-1.0); GLUCOSE SERUM 101 mg/dL (74-106); POTASSIUM SERUM 4.4 mmol/L (3.5-5.1); SODIUM SERUM 140 mmol/L (136-145)
[2020-06-27 07:50] LABS: ALBUMIN 3.4 g/dL (3.4-5.0); ALKALINE PHOSPHATASE 93 U/L (46-116); ALT/SGPT 14 U/L (14-59); AST/SGOT 16 U/L (15-37); BILIRUBIN TOTAL 0.25 mg/dL (0.20-1.00); LIPASE 94 IU/L (73-393)
[2020-06-27 13:13] VITALS: BP 150/122
[2020-06-27 16:40] VITALS: BP 129/102; BP 152/77
[2020-06-27 20:07] VITALS: BP 139/84
[2020-06-28 05:11] VITALS: BP 151/97
[2020-06-28 05:50] LABS: BASOPHIL % 0.9 % (0-2); PLATELET COUNT 289 x10^3mcL (130-400)
[2020-06-28 06:02] LABS: RED CELL DISTRIBUTION WIDTH 15.6 % (11.5-14.5)
[2020-06-28 06:26] LABS: CALCIUM 8.8 mg/dL (8.5-10.1); CARBON DIOXIDE 27.8 mmol/L (21-32); CHLORIDE SERUM 105 mmol/L (98-107); CREATININE SERUM 1.2 mg/dL (0.6-1.0); GLUCOSE SERUM 99 mg/dL (74-106); POTASSIUM SERUM 4.4 mmol/L (3.5-5.1); SODIUM SERUM 141 mmol/L (136-145)
[2020-06-28 07:45] VITALS: BP 160/92
[2020-06-28 11:39] VITALS: BP 128/86
[2020-06-28 16:14] VITALS: BP 149/81
[2020-06-28 17:17] VITALS: BP 149/81
== END 2020-06-28 19:50 ==
LOC: ED 02:16 → MU 06:27
PROVIDERS: Internal Medicine; Student in an Organized Health Care Education/Training Program; ADMIT Internal Medicine Pulmonary Disease; ATTEND Internal Medicine Pulmonary Disease
DX: M54.5 Low back pain (principal); G89.29 Other chronic pain; R10.9 Unspecified abdominal pain; I10 Essential (primary) hypertension; F32.9 Major depressive disorder, single episode, unspecified; Z20.828 Contact with and (suspected) exposure to other viral communicable diseases
CPT/HCPCS: 97116-GP; 97530-GP; G0378; J1644; J1885; J2060; J2270; J2405; U0003-CS

== ENCOUNTER 2020-07-10 10:39 | Emergency (ER) | payer OTHER, MEDICAID ==
[~2020-07-10] VITALS: Ht 162.6 cm; Wt 67.6 kg
[~2020-07-10 10:39] MED LIST changes: +[UNRECOGNIZED DRUG - OTHER]
[2020-07-10 11:00] VITALS: Ht 162.6 cm; Wt 67.6 kg
[2020-07-10 12:15] VITALS: BP 179/93
== END 2020-07-10 12:21 | disposition home or self-care (01) ==
LOC: ED 10:39
DX: K29.70 Gastritis, unspecified, without bleeding (principal); I10 Essential (primary) hypertension; K21.9 Gastro-esophageal reflux disease without esophagitis; G89.29 Other chronic pain; Z88.8 Allergy status to other drugs, medicaments and biological substances
CPT/HCPCS: J1885; Q0162

== ENCOUNTER 2020-07-12 11:41 | Emergency (ER) | payer OTHER, MEDICAID ==
[~2020-07-12] VITALS: Ht 160 cm; Wt 63.5 kg
[2020-07-12 11:50] VITALS: Ht 160 cm; Wt 63.5 kg
[2020-07-12 17:05] VITALS: BP 158/96
== END 2020-07-12 17:05 | disposition home or self-care (01) ==
LOC: ED 11:41
DX: R10.10 Upper abdominal pain, unspecified (principal); G89.29 Other chronic pain; R10.816 Epigastric abdominal tenderness; I10 Essential (primary) hypertension; M19.90 Unspecified osteoarthritis, unspecified site; Z98.890 Other specified postprocedural states; Z88.8 Allergy status to other drugs, medicaments and biological substances
CPT/HCPCS: J1885; Q0162

== ENCOUNTER 2020-07-15 11:45 | Emergency (ER) | payer OTHER, MEDICAID ==
[~2020-07-15] VITALS: Ht 160 cm; Wt 63.5 kg
[2020-07-15 11:56] VITALS: Ht 160 cm; Wt 63.5 kg
[2020-07-15 13:44] VITALS: BP 152/78
== END 2020-07-15 13:44 | disposition home or self-care (01) ==
LOC: ED 11:45
DX: G89.29 Other chronic pain (principal); R10.11 Right upper quadrant pain; I10 Essential (primary) hypertension; K21.9 Gastro-esophageal reflux disease without esophagitis; Z88.8 Allergy status to other drugs, medicaments and biological substances

== ENCOUNTER 2020-07-22 09:43 | Emergency (ER) | payer OTHER, MEDICAID ==
[~2020-07-22] VITALS: Ht 167.6 cm; Wt 63.5 kg
[2020-07-22 09:46] VITALS: Ht 167.6 cm; Wt 63.5 kg
[2020-07-22 10:36] LABS: BASOPHIL % 0.6 % (0-2); PLATELET COUNT 263 x10^3mcL (130-400)
[2020-07-22 10:40] LABS: RED CELL DISTRIBUTION WIDTH 15.9 % (11.5-14.5)
[2020-07-22 10:51] LABS: CALCIUM 8.3 mg/dL (8.5-10.1); CARBON DIOXIDE 28.7 mmol/L (21-32); CHLORIDE SERUM 103 mmol/L (98-107); CREATININE SERUM 1.1 mg/dL (0.6-1.0); GLUCOSE SERUM 101 mg/dL (74-106); POTASSIUM SERUM 3.6 mmol/L (3.5-5.1); SODIUM SERUM 138 mmol/L (136-145)
[2020-07-22 10:55] LABS: ALBUMIN 3.3 g/dL (3.4-5.0); ALKALINE PHOSPHATASE 73 U/L (46-116); ALT/SGPT 13 U/L (14-59); AMYLASE 56 U/L (25-115); AST/SGOT 13 U/L (15-37); BILIRUBIN TOTAL 0.3 mg/dL (0.20-1.00); LIPASE 122 IU/L (73-393); TOTAL PROTEIN, SERUM 6.1 g/dL (6.4-8.2)
[2020-07-22 12:49] VITALS: BP 129/68
== END 2020-07-22 12:49 | disposition home or self-care (01) ==
LOC: ED 09:43
PROVIDERS: Specialist
DX: R10.13 Epigastric pain (principal); G89.29 Other chronic pain; R11.0 Nausea; I10 Essential (primary) hypertension; Z88.8 Allergy status to other drugs, medicaments and biological substances
CPT/HCPCS: J1885; J2405; J3490; Q0092

== ENCOUNTER 2020-07-22 15:34 | Emergency (ER) | payer OTHER, MEDICAID ==
[~2020-07-22] VITALS: Ht 167.6 cm; Wt 81.6 kg
[2020-07-22 15:47] VITALS: BP 158/89; Ht 167.6 cm; Wt 81.6 kg
== END 2020-07-22 16:22 | disposition home or self-care (01) ==
LOC: ED 15:34
DX: F32.9 Major depressive disorder, single episode, unspecified (principal); R45.851 Suicidal ideations; G89.29 Other chronic pain; I10 Essential (primary) hypertension; Z88.8 Allergy status to other drugs, medicaments and biological substances

== ENCOUNTER 2020-08-01 11:32 | Emergency (ER) | payer OTHER, MEDICAID ==
[~2020-08-01] VITALS: Ht 160 cm; Wt 63.5 kg
[2020-08-01 13:03] VITALS: Ht 160 cm; Wt 63.5 kg
[2020-08-01 16:08] VITALS: BP 135/80
== END 2020-08-01 16:08 | disposition home or self-care (01) ==
LOC: ED 11:32
DX: M54.5 Low back pain (principal); M54.6 Pain in thoracic spine; R07.89 Other chest pain; G89.29 Other chronic pain; K21.9 Gastro-esophageal reflux disease without esophagitis; Z88.8 Allergy status to other drugs, medicaments and biological substances; W05.0XXA Fall from non-moving wheelchair, initial encounter; Y93.89 Activity, other specified; Y92.89 Other specified places as the place of occurrence of the external cause; Y99.8 Other external cause status
CPT/HCPCS: 72072

== ENCOUNTER 2020-08-05 09:55 | Emergency (ER) | payer OTHER, MEDICAID ==
[~2020-08-05] VITALS: Ht 160 cm; Wt 63.5 kg
[2020-08-05 11:34] VITALS: BP 152/89
== END 2020-08-05 12:16 | disposition home or self-care (01) ==
LOC: ED 09:55
DX: G89.29 Other chronic pain (principal); M54.5 Low back pain; R10.13 Epigastric pain; I10 Essential (primary) hypertension; Z88.8 Allergy status to other drugs, medicaments and biological substances

== ENCOUNTER 2020-08-06 12:43 | Emergency (ER) | payer OTHER, MEDICAID ==
[2020-08-06 15:43] LABS: BASOPHIL % 1.1 % (0-2); PLATELET COUNT 261 x10^3mcL (130-400)
[2020-08-06 15:48] LABS: RED CELL DISTRIBUTION WIDTH 16.7 % (11.5-14.5)
[2020-08-06 15:54] LABS: CALCIUM 8.5 mg/dL (8.5-10.1); CARBON DIOXIDE 27.5 mmol/L (21-32); CHLORIDE SERUM 106 mmol/L (98-107); CREATININE SERUM 1.1 mg/dL (0.6-1.0); GLUCOSE SERUM 92 mg/dL (74-106); POTASSIUM SERUM 3.9 mmol/L (3.5-5.1); SODIUM SERUM 139 mmol/L (136-145)
[2020-08-06 15:58] LABS: ALBUMIN 3.4 g/dL (3.4-5.0); ALKALINE PHOSPHATASE 87 U/L (46-116); ALT/SGPT 14 U/L (14-59); AST/SGOT 16 U/L (15-37); BILIRUBIN TOTAL 0.2 mg/dL (0.20-1.00); LIPASE 94 IU/L (73-393); TOTAL PROTEIN, SERUM 6.9 g/dL (6.4-8.2)
[2020-08-06 17:01] VITALS: BP 153/86
== END 2020-08-06 17:01 | disposition home or self-care (01) ==
LOC: ED 12:43
PROVIDERS: Emergency Medicine
DX: G89.29 Other chronic pain (principal); R10.817 Generalized abdominal tenderness; I10 Essential (primary) hypertension; K21.9 Gastro-esophageal reflux disease without esophagitis; Z88.6 Allergy status to analgesic agent
CPT/HCPCS: J1885

== ENCOUNTER 2020-08-07 09:15 | Emergency (ER) | payer OTHER, MEDICAID ==
[~2020-08-07] VITALS: Ht 160 cm; Wt 63.5 kg
[2020-08-07 09:34] VITALS: Ht 160 cm; Wt 63.5 kg
[2020-08-07 11:56] VITALS: BP 164/83
== END 2020-08-07 11:56 | disposition home or self-care (01) ==
LOC: ED 09:15
DX: G89.29 Other chronic pain (principal); R10.84 Generalized abdominal pain; I10 Essential (primary) hypertension; K21.9 Gastro-esophageal reflux disease without esophagitis; Z98.890 Other specified postprocedural states; Z88.8 Allergy status to other drugs, medicaments and biological substances
CPT/HCPCS: J1885

== ENCOUNTER 2020-08-08 10:58 | Emergency (ER) | payer OTHER, MEDICAID ==
[~2020-08-08] VITALS: Ht 162.6 cm; Wt 76.2 kg
[2020-08-08 11:22] VITALS: Ht 162.6 cm; Wt 76.2 kg
[2020-08-08 13:48] VITALS: BP 142/86
== END 2020-08-08 13:48 | disposition home or self-care (01) ==
LOC: ED 10:58
DX: R10.10 Upper abdominal pain, unspecified (principal); G89.29 Other chronic pain; I10 Essential (primary) hypertension; M47.9 Spondylosis, unspecified; Z88.8 Allergy status to other drugs, medicaments and biological substances; Z98.890 Other specified postprocedural states
CPT/HCPCS: J1885; Q0162

== ENCOUNTER 2020-08-11 11:39 | Emergency (ER) | payer OTHER, MEDICAID ==
[~2020-08-11] VITALS: Ht 160 cm; Wt 63.5 kg
[2020-08-11 11:44] VITALS: Ht 160 cm; Wt 63.5 kg
[2020-08-11 13:48] VITALS: BP 130/75
== END 2020-08-11 13:49 | disposition home or self-care (01) ==
LOC: ED 11:39
DX: R07.89 Other chest pain (principal); R10.13 Epigastric pain; M54.5 Low back pain; M47.9 Spondylosis, unspecified; K21.9 Gastro-esophageal reflux disease without esophagitis; I10 Essential (primary) hypertension; Z98.890 Other specified postprocedural states; Z88.8 Allergy status to other drugs, medicaments and biological substances

== ENCOUNTER 2020-08-12 09:57 | Emergency (ER) | payer OTHER, MEDICAID ==
[~2020-08-12] VITALS: Ht 157.5 cm; Wt 74.8 kg
[2020-08-12 10:06] VITALS: Ht 157.5 cm; Wt 74.8 kg
[2020-08-12 11:01] VITALS: BP 149/68
== END 2020-08-12 13:00 | disposition home or self-care (01) ==
LOC: ED 09:57
DX: R10.9 Unspecified abdominal pain (principal); R07.89 Other chest pain; I10 Essential (primary) hypertension; M47.9 Spondylosis, unspecified; K21.9 Gastro-esophageal reflux disease without esophagitis; G89.29 Other chronic pain; Z88.8 Allergy status to other drugs, medicaments and biological substances

== ENCOUNTER 2020-08-22 09:39 | Emergency (ER) | payer OTHER, MEDICAID ==
[~2020-08-22] VITALS: Ht 160 cm; Wt 63.5 kg
[2020-08-22 09:51] VITALS: Ht 160 cm; Wt 63.5 kg
[2020-08-22] MEDS ORDERED: PERCOCET1 TA5 PO (10:03)
[2020-08-22] MEDS ORDERED: PEPCID AC20 M2 PO (10:05)
[2020-08-22 11:51] VITALS: BP 173/89
== END 2020-08-22 11:51 | disposition home or self-care (01) ==
LOC: ED 09:39
DX: M25.511 Pain in right shoulder (principal); M54.5 Low back pain; M54.2 Cervicalgia; I10 Essential (primary) hypertension; K21.9 Gastro-esophageal reflux disease without esophagitis; G89.29 Other chronic pain; Z88.8 Allergy status to other drugs, medicaments and biological substances
CPT/HCPCS: J2270; J2405

== ENCOUNTER 2020-08-28 12:03 | Emergency (ER) | payer OTHER, MEDICAID ==
[~2020-08-28] VITALS: Ht 160 cm; Wt 63.5 kg
[~2020-08-28 12:03] MED LIST changes: +PEPCID AC20 M2 PO
[2020-08-28 12:05] VITALS: BP 141/94; Ht 160 cm; Wt 63.5 kg
== END 2020-08-28 14:32 | disposition left against medical advice (07) ==
LOC: ED 12:03
DX: Z53.21 Procedure and treatment not carried out due to patient leaving prior to being seen by health care provider (principal)

== ENCOUNTER 2020-08-30 14:06 | Emergency (ER) | payer OTHER, MEDICAID ==
[~2020-08-30] VITALS: Ht 157.5 cm; Wt 79.4 kg
[2020-08-30 14:36] VITALS: BP 145/93; Ht 157.5 cm; Wt 79.4 kg
== END 2020-08-30 16:40 | disposition left against medical advice (07) ==
LOC: ED 14:06
DX: Z53.21 Procedure and treatment not carried out due to patient leaving prior to being seen by health care provider (principal)

== ENCOUNTER 2020-09-02 11:08 | Emergency (ER) | payer OTHER, MEDICAID ==
[~2020-09-02] VITALS: Ht 160 cm; Wt 68.0 kg
[2020-09-02 11:31] VITALS: BP 134/84; Ht 160 cm; Wt 68.0 kg
[2020-09-02 12:47] LABS: BASOPHIL % 1.2 % (0-2); PLATELET COUNT 298 x10^3mcL (130-400)
[2020-09-02 12:55] LABS: CALCIUM 8.4 mg/dL (8.5-10.1); CARBON DIOXIDE 30.2 mmol/L (21-32); CHLORIDE SERUM 108 mmol/L (98-107); CREATININE SERUM 1.2 mg/dL (0.6-1.0); GLUCOSE SERUM 98 mg/dL (74-106); POTASSIUM SERUM 4.7 mmol/L (3.5-5.1); SODIUM SERUM 144 mmol/L (136-145)
[2020-09-02 12:59] LABS: ALKALINE PHOSPHATASE 86 U/L (46-116); ALT/SGPT 16 U/L (14-59); AST/SGOT 15 U/L (15-37); BILIRUBIN TOTAL 0.25 mg/dL (0.20-1.00); LIPASE 92 IU/L (73-393); TOTAL PROTEIN, SERUM 6.5 g/dL (6.4-8.2)
[2020-09-02 13:04] LABS: ALBUMIN 3.1 g/dL (3.4-5.0)
== END 2020-09-02 14:33 | disposition home or self-care (01) ==
LOC: ED 11:08
PROVIDERS: Emergency Medicine
DX: K29.70 Gastritis, unspecified, without bleeding (principal); I10 Essential (primary) hypertension; K21.9 Gastro-esophageal reflux disease without esophagitis; Z88.8 Allergy status to other drugs, medicaments and biological substances
CPT/HCPCS: Q0162

== ENCOUNTER 2020-09-03 10:06 | Emergency (ER) | payer OTHER, MEDICAID ==
[~2020-09-03] VITALS: Ht 160 cm; Wt 63.5 kg
[2020-09-03 10:16] VITALS: BP 133/90; Ht 160 cm; Wt 63.5 kg
== END 2020-09-03 12:28 | disposition home or self-care (01) ==
LOC: ED 10:06
DX: M54.5 Low back pain (principal); R10.9 Unspecified abdominal pain; I10 Essential (primary) hypertension; K21.9 Gastro-esophageal reflux disease without esophagitis; G89.29 Other chronic pain; Z88.8 Allergy status to other drugs, medicaments and biological substances
CPT/HCPCS: J1885

== ENCOUNTER 2020-09-05 14:28 | Emergency (ER) | payer OTHER, MEDICAID | END 2020-09-05 14:47 | disposition left against medical advice (07) | LOC: ED 14:28 | DX: Z53.21 Procedure and treatment not carried out due to patient leaving prior to being seen by health care provider (principal) ==

== ENCOUNTER 2020-09-12 13:19 | Emergency (ER) | payer OTHER, MEDICAID ==
[~2020-09-12] VITALS: Ht 165.1 cm; Wt 63.5 kg
[2020-09-12 13:39] VITALS: BP 162/100; Ht 165.1 cm; Wt 63.5 kg
== END 2020-09-12 20:06 | disposition left against medical advice (07) ==
LOC: ED 13:19
DX: Z53.21 Procedure and treatment not carried out due to patient leaving prior to being seen by health care provider (principal)

== ENCOUNTER 2020-10-23 11:27 | Emergency (ER) | payer OTHER, MEDICAID ==
[~2020-10-23] VITALS: Ht 160 cm; Wt 63.5 kg
[2020-10-23 12:21] VITALS: BP 160/90; Ht 160 cm; Wt 63.5 kg
[2020-10-23 13:14] LABS: BASOPHIL % 1.3 % (0.2-1.3); PLATELET COUNT 352 x10^3mcL (179-408)
[2020-10-23 13:23] LABS: RED CELL DISTRIBUTION WIDTH 15.8 % (12.3-17.7)
[2020-10-23 13:29] LABS: CALCIUM 9.1 mg/dL (8.5-10.1); CARBON DIOXIDE 27.5 mmol/L (21-32); CHLORIDE SERUM 104 mmol/L (98-107); CREATININE SERUM 1.1 mg/dL (0.6-1.0); GLUCOSE SERUM 125 mg/dL (74-106); POTASSIUM SERUM 4.1 mmol/L (3.5-5.1); SODIUM SERUM 141 mmol/L (136-145)
[2020-10-23 13:34] LABS: ALKALINE PHOSPHATASE 103 U/L (46-116); ALT/SGPT 23 U/L (14-59); AST/SGOT 16 U/L (15-37); BILIRUBIN TOTAL 0.3 mg/dL (0.20-1.00); CHOLESTEROL 199 mg/dL (<200); CHOLESTEROL/HDL RATIO 2.4; HDL CHOLESTEROL 82 mg/dL (40-60); LIPASE 120 IU/L (73-393); TOTAL PROTEIN, SERUM 7.7 g/dL (6.4-8.2); TRIGLYCERIDES 139 mg/dL (<150)
== END 2020-10-23 16:11 | disposition home or self-care (01) ==
LOC: ED 11:27
PROVIDERS: Specialist
DX: K21.9 Gastro-esophageal reflux disease without esophagitis (principal); R10.13 Epigastric pain; G89.29 Other chronic pain; F32.9 Major depressive disorder, single episode, unspecified
CPT/HCPCS: J1885

== ENCOUNTER 2020-10-28 10:09 | Emergency (ER) | payer OTHER, MEDICAID ==
[~2020-10-28] VITALS: Ht 157.5 cm; Wt 63.5 kg
[2020-10-28 10:22] VITALS: Ht 157.5 cm; Wt 63.5 kg
[2020-10-28 11:45] VITALS: BP 156/85
== END 2020-10-28 11:45 | disposition home or self-care (01) ==
LOC: ED 10:09
DX: R10.816 Epigastric abdominal tenderness (principal); G89.29 Other chronic pain; I10 Essential (primary) hypertension; K21.9 Gastro-esophageal reflux disease without esophagitis; Z88.8 Allergy status to other drugs, medicaments and biological substances
CPT/HCPCS: J1885

== ENCOUNTER 2020-11-09 14:27 | Emergency (ER) | payer OTHER, MEDICAID ==
[~2020-11-09] VITALS: Ht 160 cm; Wt 63.5 kg
[2020-11-09 14:32] VITALS: Ht 160 cm; Wt 63.5 kg
[2020-11-09 15:59] LABS: BASOPHIL % 1.5 % (0.2-1.3); PLATELET COUNT 303 x10^3mcL (179-408)
[2020-11-09 16:00] LABS: RED CELL DISTRIBUTION WIDTH 15.5 % (12.3-17.7)
[2020-11-09 16:16] LABS: CALCIUM 8.5 mg/dL (8.5-10.1); CHLORIDE SERUM 104 mmol/L (98-107); CREATININE SERUM 1.1 mg/dL (0.6-1.0); GLUCOSE SERUM 86 mg/dL (74-106); POTASSIUM SERUM 4.2 mmol/L (3.5-5.1); SODIUM SERUM 140 mmol/L (136-145)
[2020-11-09 16:21] LABS: ALBUMIN 3.5 g/dL (3.4-5.0); ALKALINE PHOSPHATASE 82 U/L (46-116); ALT/SGPT 18 U/L (14-59); AMYLASE 61 U/L (25-115); AST/SGOT 17 U/L (15-37); BILIRUBIN TOTAL 0.1 mg/dL (0.20-1.00); LIPASE 96 IU/L (73-393)
[2020-11-09 17:37] VITALS: BP 180/91
== END 2020-11-09 17:37 | disposition home or self-care (01) ==
LOC: ED 14:27
PROVIDERS: Emergency Medicine
DX: K20.80 Other esophagitis without bleeding (principal); I10 Essential (primary) hypertension; K21.9 Gastro-esophageal reflux disease without esophagitis; Z88.8 Allergy status to other drugs, medicaments and biological substances; Z98.890 Other specified postprocedural states
CPT/HCPCS: J1610; J1885; J2405

== ENCOUNTER 2020-11-14 11:49 | Emergency (ER) | payer OTHER, MEDICAID ==
[~2020-11-14] VITALS: Ht 157.5 cm; Wt 68.0 kg
[2020-11-14 12:11] VITALS: Ht 157.5 cm; Wt 68.0 kg
[2020-11-14 15:34] VITALS: BP 160/70
== END 2020-11-14 16:02 | disposition home or self-care (01) ==
LOC: ED 11:49
DX: R10.13 Epigastric pain (principal); G89.29 Other chronic pain; R11.0 Nausea; M54.9 Dorsalgia, unspecified; I10 Essential (primary) hypertension; F11.20 Opioid dependence, uncomplicated; K21.9 Gastro-esophageal reflux disease without esophagitis; Z88.8 Allergy status to other drugs, medicaments and biological substances; Z98.890 Other specified postprocedural states
CPT/HCPCS: Q0162

== ENCOUNTER 2020-12-09 10:53 | Emergency (ER) | payer OTHER, MEDICAID ==
[~2020-12-09] VITALS: Ht 160 cm; Wt 72.6 kg
[2020-12-09 10:55] VITALS: Ht 160 cm; Wt 72.6 kg
[2020-12-09 11:57] LABS: BASOPHIL % 1.1 % (0.2-1.3); PLATELET COUNT 288 x10^3mcL (179-408)
[2020-12-09 12:06] LABS: CALCIUM 8.3 mg/dL (8.5-10.1); CARBON DIOXIDE 26.8 mmol/L (21-32); CHLORIDE SERUM 103 mmol/L (98-107); CREATININE SERUM 1.2 mg/dL (0.6-1.0); GLUCOSE SERUM 113 mg/dL (74-106); POTASSIUM SERUM 4.1 mmol/L (3.5-5.1); SODIUM SERUM 141 mmol/L (136-145)
[2020-12-09 12:10] LABS: ALBUMIN 3.6 g/dL (3.4-5.0); ALKALINE PHOSPHATASE 86 U/L (46-116); ALT/SGPT 15 U/L (14-59); AMYLASE 53 U/L (25-115); AST/SGOT 17 U/L (15-37); BILIRUBIN TOTAL 0.23 mg/dL (0.20-1.00); LIPASE 109 IU/L (73-393); TOTAL PROTEIN, SERUM 7.1 g/dL (6.4-8.2)
[2020-12-09 13:27] VITALS: BP 152/74
== END 2020-12-09 13:27 | disposition home or self-care (01) ==
LOC: ED 10:53
PROVIDERS: Emergency Medicine
DX: R10.13 Epigastric pain (principal); G89.29 Other chronic pain; I10 Essential (primary) hypertension; K21.9 Gastro-esophageal reflux disease without esophagitis; Z88.8 Allergy status to other drugs, medicaments and biological substances; Z98.890 Other specified postprocedural states
CPT/HCPCS: Q0162